=== PATIENT | female | born 1950 | race Caucasian/White ===

== ENCOUNTER 2016-09-14 14:27 | Inpatient (IN) | payer OTHER ==
[~2016-09-14] VITALS: Ht 158.8 cm; Wt 78.5 kg
[~2016-09-14 14:27] MED LIST: ADVAIR 250/501 DISK IH; ADVAIR 500/501 DISK IH; ALBUTEROL IH; ALBUTEROL2.5 MG/3 M IH; AMLODIPINE BES2.5 MG PO; ASPIR 8181 M1 PO; ASPIRIN325 MG PO; ATIVAN0.5 MG PO; AZITHROMYCIN250 MG PO; AZITHROMYCIN250 MG1 PO; Advair HFA 230/21 IH; BENEFIBER98 GM PO; CARAFATE100 MG/ML PO; COLACE100 MG PO; COUMADIN4 MG PO; COUMADIN5 MG PO; DEXILANT60 MG PO; DOMP10T PO; DOMPERIDONE PO; DUONEB 2.5-0.5 M3 ML AEROSOL; DYAZIDE, MA1 CAPSULE PO; ELIQUIS5 MG PO; Ecotrin PO; FUROSEMIDE40 MG PO; K-DUR20 MEQ PO; KLOR-CON M2020 MEQ PO; LASIX20 MG PO; LASIX40 MG PO; LEVAQUIN500 MG PO; LEVOFLOXACIN750 MG PO; LEVOTHYROXINE125 MCG PO; LEVOXYL125 MCG PO; LEXAPRO10 MG PO; LISINOPRIL10 MG PO; LORAZEPAM0.5 MG PO; LOVENOX60 MG/0.6 SC; LOVENOX80 MG/0.8 SC; Levothroid,Synthroid PO; MIRALAX17 GM PO; MIRALAX255 GM PO; MOTRIN600 MG PO; MOTRIN800 MG PO; NITROSTAT,NITR0.4 M1 SL; PANTOPRAZOLE SO40 MG PO; PRAVACHOL40 MG PO; PREDNISONE10 MG PO; PREDNISONE20 MG PO; PREDNISONE5 MG PO; PROAIR HFA8.5 GM IH; PROTONIX40 MG PO; PROVENTIL,2.5 MG/3 M IH; SIMVASTATIN10 MG PO; SPIRIVA RESPIMAT4 GM IH; SPIRIVA1 INHALATI IH; SYMBICORT60 INHALAT IH; SYNTHROID100 MCG PO; SYNTHROID125 MCG PO; TRAMADOL HCL50 MG PO; TRAZODONE HCL50 MG PO; TUDORZA PRESS400 MCG IH; TYLENOL EXTRA500 MG PO; ULTRAM50 MG PO; VENTOLIN HFA18 GM IH; WARFARIN SODIUM1 MG PO; WARFARIN SODIUM5 MG PO; ZITHROMAX250 MG PO
[2016-09-14 15:15] LABS: HEMATOCRIT 44.7 % (36.0-46.0); MCH 29.4 PG (29.0-34.0); MCHC 32.4 G/DL (30.0-36.0); MCV 90.5 FL (83-99); MEAN PLAT.VOLUME 10.2 uM^3 (9.5-12.4); PLATELET COUNT 255 K/uL (156-360); RBC DIS.WIDTH-CV 15.4 % (11.8-14.6); RBC DIS.WIDTH-SD 50.4 % (39-53); RED BLOOD COUNT 4.94 M/uL (3.80-5.20); WHITE BLOOD COUNT 16.2 K/uL (4.1-10.2)
[2016-09-14] MEDS ORDERED: WARFARIN SODIU2.5 MG PO (15:16)
[2016-09-14] MEDS ORDERED: WARFARIN SODIUM5 MG PO (15:18)
[2016-09-14] MEDS ORDERED: DUONEB 2.5-0.5 M3 ML AEROSOL (15:21)
[2016-09-14] MEDS ORDERED: TUDORZA PRESS400 MCG IH (15:22)
[2016-09-14] MEDS ORDERED: ZITHROMAX500 MG PO (15:23)
[2016-09-14] MEDS ORDERED: PREDNISONE10 MG PO (15:26)
[2016-09-14] MEDS ORDERED: DALIRESP500 MCG PO (15:29)
[2016-09-14 15:53] LABS: ANION GAP 11 MEQ/L (2-14); CHLORIDE 99 MEQ/L (99-109); POTASSIUM 3.5 MEQ/L (3.7-5.4); SAMPLE HEMOLYSIS CHECK 0; SAMPLE ICTERIC CHECK 0; SAMPLE LIPEMIA CHECK 0; SODIUM 141 MEQ/L (136-147)
[2016-09-14 15:59] LABS: GFR ESTIMATE (CALCULATED) 48 mL/min/; GLUCOSE 87 mg/dL (70-99); UREA NITROGEN (BUN) 31 mg/dL (9-23)
[2016-09-14 16:00] LABS: TROP-I INTERPRETATION NEGATIVE; TROPONIN-I < 0.01 ng/mL (0.0-0.30)
[2016-09-14 18:07] LABS: INTER. NORMALIZED RATIO 2.1; PROTHROMBIN TIME 22.2 (9.2-11.2)
[2016-09-14 18:08] VITALS: BP 140/68
[2016-09-14 19:47] VITALS: BP 177/76
[2016-09-15] VITALS (8 sets, daily range): BP systolic 120–218; BP diastolic 68–100
[2016-09-15 00:06] LABS: ADD MIUA? YES; BILIRUBIN NEGATIVE; BLOOD MODERATE; COLOR YELLOW ((YELLOW)); GLUCOSE (STRIP) NEGATIVE; KETONES NEGATIVE; LEUKOCYTES NEGATIVE; NITRITE NEGATIVE; PROTEIN (STRIP) NEGATIVE; SPECIFIC GRAVITY 1.021 (1.000-1.030); UROBILINOGEN 0.2 MG/DL (0.2-1.0)
[2016-09-15 00:37] LABS: BACTERIA NONE SEEN; CASTS NONE SEEN /LPF; CRYSTALS NONE SEEN; EPITHELIAL CELLS NONE SEEN; MUCUS NONE SEEN; RED BLOOD CELLS 0-5 /HPF (0-5); UCUL ADDED? NO; WHITE BLOOD CELLS NONE SEEN /HPF (0-5)
[2016-09-15 06:29] LABS: ANION GAP 12 MEQ/L (2-14); CHLORIDE 100 MEQ/L (99-109); GFR ESTIMATE (CALCULATED) 43 mL/min/; SAMPLE HEMOLYSIS CHECK 0; SAMPLE ICTERIC CHECK 0; SAMPLE LIPEMIA CHECK 0; SODIUM 141 MEQ/L (136-147); UREA NITROGEN (BUN) 30 mg/dL (9-23)
[2016-09-15 06:32] LABS: GLUCOSE 143 mg/dL (70-99); POTASSIUM 4.3 MEQ/L (3.7-5.4)
[2016-09-15 06:34] LABS: HEMATOCRIT 41.3 % (36.0-46.0); MCH 29.5 PG (29.0-34.0); MCHC 32.2 G/DL (30.0-36.0); MCV 91.6 FL (83-99); MEAN PLAT.VOLUME 10.6 uM^3 (9.5-12.4); PLATELET COUNT 247 K/uL (156-360); RBC DIS.WIDTH-CV 15.3 % (11.8-14.6); RBC DIS.WIDTH-SD 51.3 % (39-53); RED BLOOD COUNT 4.51 M/uL (3.80-5.20)
[2016-09-15 06:36] LABS: WHITE BLOOD COUNT 10.1 K/uL (4.1-10.2)
[2016-09-15 06:46] LABS: INTER. NORMALIZED RATIO 2.1; PROTHROMBIN TIME 21.8 (9.2-11.2)
[2016-09-16] VITALS: BP 121/63
[2016-09-16 07:28] VITALS: BP 172/77
[2016-09-16 07:32] LABS: INTER. NORMALIZED RATIO 2.7; PROTHROMBIN TIME 28.5 (9.2-11.2)
[2016-09-16 08:29] LABS: ANION GAP 10 MEQ/L (2-14); CHLORIDE 101 MEQ/L (99-109); GFR ESTIMATE (CALCULATED) 43 mL/min/; GLUCOSE 132 mg/dL (70-99); POTASSIUM 4.4 MEQ/L (3.7-5.4); SAMPLE HEMOLYSIS CHECK 0; SAMPLE ICTERIC CHECK 0; SAMPLE LIPEMIA CHECK 0; SODIUM 141 MEQ/L (136-147); UREA NITROGEN (BUN) 32 mg/dL (9-23)
[2016-09-16 15:56] VITALS: BP 119/70
[2016-09-17] VITALS: BP 133/58
[2016-09-17 06:12] LABS: INTER. NORMALIZED RATIO 3.4; PROTHROMBIN TIME 35.6 (9.2-11.2)
[2016-09-17 08:15] VITALS: BP 142/68
[2016-09-17 17:25] VITALS: BP 130/56
[2016-09-18] VITALS: BP 132/65
[2016-09-18 06:04] LABS: INTER. NORMALIZED RATIO 4.2; PROTHROMBIN TIME 44.3 (9.2-11.2)
[2016-09-18 09:06] LABS: HEMATOCRIT 42.5 % (36.0-46.0); MCHC 32.7 G/DL (30.0-36.0); MCV 91.8 FL (83-99); MEAN PLAT.VOLUME 10.3 uM^3 (9.5-12.4); PLATELET COUNT 267 K/uL (156-360); RBC DIS.WIDTH-CV 15.7 % (11.8-14.6); RBC DIS.WIDTH-SD 52.4 % (39-53); RED BLOOD COUNT 4.63 M/uL (3.80-5.20); WHITE BLOOD COUNT 11.5 K/uL (4.1-10.2)
[2016-09-18 09:41] LABS: ANION GAP 8 MEQ/L (2-14); CHLORIDE 99 MEQ/L (99-109); GFR ESTIMATE (CALCULATED) 48 mL/min/; GLUCOSE 143 mg/dL (70-99); POTASSIUM 4.2 MEQ/L (3.7-5.4); SAMPLE HEMOLYSIS CHECK 0; SAMPLE ICTERIC CHECK 0; SAMPLE LIPEMIA CHECK 0; SODIUM 139 MEQ/L (136-147); UREA NITROGEN (BUN) 35 mg/dL (9-23)
[2016-09-18 15:30] VITALS: BP 135/67
[2016-09-19] VITALS: BP 121/58
[2016-09-19 06:29] LABS: INTER. NORMALIZED RATIO 3.4; PROTHROMBIN TIME 35.6 (9.2-11.2)
[2016-09-19 06:30] LABS: HEMATOCRIT 39.9 % (36.0-46.0); MCH 28.5 PG (29.0-34.0); MCHC 31.3 G/DL (30.0-36.0); MCV 91.1 FL (83-99); MEAN PLAT.VOLUME 9.9 uM^3 (9.5-12.4); PLATELET COUNT 266 K/uL (156-360); RBC DIS.WIDTH-CV 15.5 % (11.8-14.6); RBC DIS.WIDTH-SD 51.8 % (39-53); RED BLOOD COUNT 4.38 M/uL (3.80-5.20); WHITE BLOOD COUNT 10.4 K/uL (4.1-10.2)
[2016-09-19 06:46] LABS: ANION GAP 8 MEQ/L (2-14); CHLORIDE 98 MEQ/L (99-109); GFR ESTIMATE (CALCULATED) 48 mL/min/; GLUCOSE 139 mg/dL (70-99); POTASSIUM 4.6 MEQ/L (3.7-5.4); SAMPLE HEMOLYSIS CHECK 0; SAMPLE ICTERIC CHECK 0; SAMPLE LIPEMIA CHECK 0; SODIUM 139 MEQ/L (136-147); UREA NITROGEN (BUN) 32 mg/dL (9-23)
[2016-09-19 07:48] VITALS: BP 114/67
[2016-09-19 14:56] VITALS: BP 138/67
[2016-09-20] VITALS: BP 136/71
[2016-09-20 06:39] LABS: PROTHROMBIN TIME 31.9 (9.2-11.2)
[2016-09-20 07:42] VITALS: BP 161/75
[2016-09-20 15:25] VITALS: BP 128/63
[2016-09-21] VITALS: BP 128/61
[2016-09-21 06:49] LABS: INTER. NORMALIZED RATIO 3.4; PROTHROMBIN TIME 36.2 (9.2-11.2)
[2016-09-21 08:01] VITALS: BP 151/75
[2016-09-21] MEDS ORDERED: Robitussin AC,Tussi- PO (12:27)
[2016-09-21] MEDS ORDERED: PREDNISONE10 MG PO (12:27)
[2016-09-21] MEDS ORDERED: LOSARTAN POTASS50 MG PO (12:27)
== END 2016-09-21 13:55 | disposition home or self-care (01) | DRG 190 ==
LOC: EME 14:27 → EDOF 16:25 → 5WEST 16:25 → 5SOUTH 09-15 08:20 → 5WEST 09-15 08:20 → 5SOUTH 09-15 21:02
PROVIDERS: Internal Medicine; Physician Assistant; Physician Assistant Medical; Student in an Organized Health Care Education/Training Program
DX: J44.0 Chronic obstructive pulmonary disease with (acute) lower respiratory infection (principal); J96.21 Acute and chronic respiratory failure with hypoxia; I10 Essential (primary) hypertension; F32.9 Major depressive disorder, single episode, unspecified; K21.9 Gastro-esophageal reflux disease without esophagitis; E03.9 Hypothyroidism, unspecified; E87.6 Hypokalemia; Z99.81 Dependence on supplemental oxygen; Z87.891 Personal history of nicotine dependence; J20.9 Acute bronchitis, unspecified; Z86.718 Personal history of other venous thrombosis and embolism; Z79.01 Long term (current) use of anticoagulants
CPT/HCPCS: 71020; 71100; 71275; 80048; 81003; 82785 90; 82948; 84484; 85027; 85610; 87070; 87106; 87205; 93005; 94640; 94640 76; 94799; 99202; 99281; 99284; G0378; J2920; J2930; J7030; J7512

== ENCOUNTER 2017-01-10 16:23 | Inpatient (IN) | payer OTHER ==
[~2017-01-10] VITALS: Ht 158.8 cm; Wt 80.5 kg
[~2017-01-10 16:23] MED LIST changes: +DALIRESP500 MCG PO; +LOSARTAN POTASS50 MG PO; +Robitussin AC,Tussi- PO; +WARFARIN SODIU2.5 MG PO; +ZITHROMAX500 MG PO
[2017-01-10 16:52] LABS: HEMATOCRIT 44.4 % (36.0-46.0); MCH 29.5 PG (29.0-34.0); MCV 92.1 FL (83-99); MEAN PLAT.VOLUME 9.6 uM^3 (9.5-12.4); PLATELET COUNT 310 K/uL (156-360); RBC DIS.WIDTH-CV 13.8 % (11.8-14.6); RED BLOOD COUNT 4.82 M/uL (3.80-5.20); WHITE BLOOD COUNT 12.5 K/uL (4.1-10.2)
[2017-01-10 17:02] LABS: CHLORIDE 106 mEq/L (99-109); POTASSIUM 4.1 mEq/L (3.7-5.4); SODIUM 141 mEq/L (136-147)
[2017-01-10 17:04] LABS: GLUCOSE 116 mg/dL (70-99)
[2017-01-10 17:05] LABS: ANION GAP 9 MEQ/L (2-14)
[2017-01-10 17:07] LABS: GFR ESTIMATE (CALCULATED) 43 mL/min/
[2017-01-10 17:08] LABS: UREA NITROGEN (BUN) 23 mg/dL (9-23)
[2017-01-10 17:17] LABS: TROP-I INTERPRETATION NEGATIVE; TROPONIN-I 0.01 ng/mL (0.0-0.30)
[2017-01-10] MEDS ORDERED: LASIX40 MG PO (19:53)
[2017-01-10] MEDS ORDERED: LOSARTAN POTASS25 MG PO (19:53)
[2017-01-10] MEDS ORDERED: PREDNISONE10 MG PO (19:55)
[2017-01-10] MEDS ORDERED: AZITHROMYCIN500 M1 PO (19:56)
[2017-01-10] MEDS ORDERED: KLOR-CON M2020 MEQ PO (19:56)
[2017-01-10] MEDS ORDERED: MIRALAX255 GM PO (19:57)
[2017-01-10] MEDS ORDERED: OXYCODONE HCL10 MG PO (19:57)
[2017-01-10] MEDS ORDERED: MYCOSTATIN 100,60 ML PO (19:57)
[2017-01-10] MEDS ORDERED: LEVAQUIN500 MG PO (19:57)
[2017-01-10 21:37] LABS: INTER. NORMALIZED RATIO 1.8; PROTHROMBIN TIME 18.2 (9.2-11.2); PTT 29.6 (25-32)
[2017-01-10 22:00] VITALS: BP 141/69
[2017-01-10 23:21] LABS: TROP-I INTERPRETATION NEGATIVE; TROPONIN-I < 0.01 ng/mL (0.0-0.30)
[2017-01-11] VITALS (7 sets, daily range): BP systolic 126–188; BP diastolic 63–89
[2017-01-11 07:34] LABS: HEMATOCRIT 39.7 % (36.0-46.0); MCH 29.5 PG (29.0-34.0); MCV 92.3 FL (83-99); PLATELET COUNT 283 K/uL (156-360); RBC DIS.WIDTH-CV 13.9 % (11.8-14.6); RBC DIS.WIDTH-SD 47.3 % (39-53); WHITE BLOOD COUNT 11.1 K/uL (4.1-10.2)
[2017-01-11 07:56] LABS: ALKALINE PHOSPHATASE 78 IU/L (3-129); ANION GAP 9 MEQ/L (2-14); CHLORIDE 104 MEQ/L (99-109); GFR ESTIMATE (CALCULATED) 48 mL/min/; GLUCOSE 132 mg/dL (70-99); POTASSIUM 4.2 MEQ/L (3.7-5.4); SAMPLE HEMOLYSIS CHECK 0; SAMPLE ICTERIC CHECK 0; SAMPLE LIPEMIA CHECK 0; SODIUM 141 MEQ/L (136-147); TOTAL BILIRUBIN 0.9 MG/DL (0.0-1.0); UREA NITROGEN (BUN) 25 mg/dL (9-23)
[2017-01-11 07:59] LABS: TROP-I INTERPRETATION NEGATIVE; TROPONIN-I 0.01 ng/mL (0.0-0.30)
[2017-01-12 03:08] VITALS: BP 146/66
[2017-01-12 07:16] LABS: EOSINOPHIL (%) 0 % (0-5); HEMATOCRIT 41.5 % (36.0-46.0); IMMATURE GRANULOCYTE (%) 1.3 % (0.0-0.7); IMMATURE GRANULOCYTE COUNT 0.2 K/uL; LYMPHOCYTE COUNT 0.7 K/uL (1.0-2.8); MCH 30.5 PG (29.0-34.0); MCHC 32.5 G/DL (30.0-36.0); MCV 93.9 FL (83-99); MONOCYTE (%) 5.4 % (3-12); NEUTROPHIL (%) 89.4 % (45-76); PLATELET COUNT 307 K/uL (156-360); RBC DIS.WIDTH-CV 14.1 % (11.8-14.6); RBC DIS.WIDTH-SD 49.2 % (39-53); RED BLOOD COUNT 4.42 M/uL (3.80-5.20)
[2017-01-12 07:27] LABS: INTER. NORMALIZED RATIO 1.4; PROTHROMBIN TIME 14.9 (9.2-11.2)
[2017-01-12 07:30] LABS: ALKALINE PHOSPHATASE 84 IU/L (3-129); ANION GAP 11 MEQ/L (2-14); CHLORIDE 99 MEQ/L (99-109); GFR ESTIMATE (CALCULATED) 43 mL/min/; GLUCOSE 162 mg/dL (70-99); POTASSIUM 4.5 MEQ/L (3.7-5.4); SAMPLE HEMOLYSIS CHECK 0; SAMPLE ICTERIC CHECK 0; SAMPLE LIPEMIA CHECK 0; SODIUM 139 MEQ/L (136-147); TOTAL BILIRUBIN 0.8 MG/DL (0.0-1.0); UREA NITROGEN (BUN) 33 mg/dL (9-23)
[2017-01-12 07:45] VITALS: BP 145/65
[2017-01-12 11:15] VITALS: BP 169/72
[2017-01-12 15:45] VITALS: BP 177/81
[2017-01-12 19:35] VITALS: BP 129/61
[2017-01-13 00:28] VITALS: BP 154/76
[2017-01-13 04:20] VITALS: BP 101/57
[2017-01-13 07:20] LABS: HEMATOCRIT 39.8 % (36.0-46.0); MCH 29.5 PG (29.0-34.0); MCHC 31.4 G/DL (30.0-36.0); MCV 93.9 FL (83-99); MEAN PLAT.VOLUME 9.9 uM^3 (9.5-12.4); PLATELET COUNT 289 K/uL (156-360); RBC DIS.WIDTH-CV 14.2 % (11.8-14.6); RBC DIS.WIDTH-SD 49.1 % (39-53); RED BLOOD COUNT 4.24 M/uL (3.80-5.20); WHITE BLOOD COUNT 19.8 K/uL (4.1-10.2)
[2017-01-13 07:26] LABS: INTER. NORMALIZED RATIO 1.7; PROTHROMBIN TIME 17.1 (9.2-11.2)
[2017-01-13 07:35] VITALS: BP 153/72
[2017-01-13 15:55] VITALS: BP 143/73
[2017-01-14 00:03] VITALS: BP 165/79
[2017-01-14 07:13] LABS: HEMATOCRIT 41.8 % (36.0-46.0); MCH 29.4 PG (29.0-34.0); MCHC 31.3 G/DL (30.0-36.0); MCV 93.9 FL (83-99); MEAN PLAT.VOLUME 9.8 uM^3 (9.5-12.4); PLATELET COUNT 288 K/uL (156-360); RBC DIS.WIDTH-CV 14.1 % (11.8-14.6); RED BLOOD COUNT 4.45 M/uL (3.80-5.20); WHITE BLOOD COUNT 16.2 K/uL (4.1-10.2)
[2017-01-14 07:52] LABS: INTER. NORMALIZED RATIO 1.9; PROTHROMBIN TIME 19.9 (9.2-11.2)
[2017-01-14 08:00] VITALS: BP 165/80
[2017-01-14] MEDS ORDERED: PREDNISONE20 MG PO (10:24)
[2017-01-14] MEDS ORDERED: SPIRIVA RESPIMAT4 GM IH (10:24)
[2017-01-14] MEDS ORDERED: ALPRAZOLAM0.25 M2 PO (10:24)
[2017-01-14] MEDS ORDERED: FLUCONAZOLE200 MG PO (10:24)
== END 2017-01-14 11:17 | disposition home or self-care (01) | DRG 190 ==
LOC: EME → EDBD 16:23 → EME 17:23 → 2EAST 20:55 → EDOF 20:55 → 2EAST 21:43
PROVIDERS: Emergency Medicine; Hospitalist; Internal Medicine
DX: J44.1 Chronic obstructive pulmonary disease with (acute) exacerbation (principal); J96.21 Acute and chronic respiratory failure with hypoxia; J45.909 Unspecified asthma, uncomplicated; I10 Essential (primary) hypertension; E03.9 Hypothyroidism, unspecified; B37.0 Candidal stomatitis; K21.9 Gastro-esophageal reflux disease without esophagitis; K22.70 Barrett's esophagus without dysplasia; E78.5 Hyperlipidemia, unspecified; F32.9 Major depressive disorder, single episode, unspecified; E66.9 Obesity, unspecified; Z68.31 Body mass index [BMI] 31.0-31.9, adult; Z99.81 Dependence on supplemental oxygen; Z86.718 Personal history of other venous thrombosis and embolism; Z79.01 Long term (current) use of anticoagulants; Z79.52 Long term (current) use of systemic steroids; Z79.2 Long term (current) use of antibiotics; Z87.891 Personal history of nicotine dependence
CPT/HCPCS: 71010; 71020; 73130; 80048; 80053; 84484; 85025; 85025 91; 85027; 85610; 85730; 87070; 87205; 93005; 94010; 94640; 94640 76; 94799; 99202; 99281; 99285; J1100; J2930; J7512

== ENCOUNTER 2017-01-24 14:46 | Emergency (ER) | payer OTHER ==
[~2017-01-24] VITALS: Ht 157.5 cm; Wt 83.6 kg
[~2017-01-24 14:46] MED LIST changes: +ALPRAZOLAM0.25 M2 PO; +AZITHROMYCIN500 M1 PO; +FLUCONAZOLE200 MG PO; +LOSARTAN POTASS25 MG PO; +MYCOSTATIN 100,60 ML PO; +OXYCODONE HCL10 MG PO
[2017-01-24 15:54] LABS: ADD MIUA? YES; BILIRUBIN NEGATIVE; BLOOD MODERATE; COLOR STRAW ((YELLOW)); GLUCOSE (STRIP) NEGATIVE; KETONES NEGATIVE; LEUKOCYTES NEGATIVE; NITRITE NEGATIVE; PROTEIN (STRIP) NEGATIVE; SPECIFIC GRAVITY 1.009 (1.000-1.030); UROBILINOGEN 0.2 MG/DL (0.2-1.0)
[2017-01-24 15:59] LABS: BACTERIA NONE SEEN /HPF; EPITHELIAL CELLS RARE /HPF; HYALINE CASTS 0-5 /LPF; MUCUS TRACE /LPF; WHITE BLOOD CELLS 0-5 /HPF (0-5)
[2017-01-24 16:00] LABS: EOSINOPHIL (%) 0.2 % (0-5); IMMATURE GRANULOCYTE (%) 1.6 % (0.0-0.7); IMMATURE GRANULOCYTE COUNT 0.3 K/uL; INSTRUMENT ABS NEUTROPHIL CT 15.1 K/uL; LYMPHOCYTE COUNT 1.6 K/uL (1.0-2.8); MCH 29.5 PG (29.0-34.0); MCHC 31.5 G/DL (30.0-36.0); MCV 93.5 FL (83-99); MEAN PLAT.VOLUME 9.6 uM^3 (9.5-12.4); MONOCYTE COUNT 0.9 K/uL (0-0.8); NEUTROPHIL (%) 84.1 % (45-76); NEUTROPHIL COUNT 15.1 K/uL (1.8-6.4); PLATELET COUNT 224 K/uL (156-360); RBC DIS.WIDTH-CV 14.3 % (11.8-14.6); RBC DIS.WIDTH-SD 49.5 % (39-53); RED BLOOD COUNT 4.92 M/uL (3.80-5.20); WHITE BLOOD COUNT 17.9 K/uL (4.1-10.2)
[2017-01-24 16:08] LABS: CHLORIDE 101 mEq/L (99-109); POTASSIUM 4.5 mEq/L (3.7-5.4); SODIUM 143 mEq/L (136-147)
[2017-01-24 16:10] LABS: GLUCOSE 100 mg/dL (70-99)
[2017-01-24 16:12] LABS: ANION GAP 12 MEQ/L (2-14); TOTAL BILIRUBIN 1.1 mg/dL (0.0-1.0)
[2017-01-24 16:14] LABS: ALKALINE PHOSPHATASE 75 IU/L (3-129); GFR ESTIMATE (CALCULATED) 43 mL/min/
[2017-01-24 16:15] LABS: UREA NITROGEN (BUN) 32 mg/dL (9-23)
[2017-01-24 16:17] LABS: LIPASE 23 U/L (1.0-51.0)
[2017-01-24 18:20] LABS: INTER. NORMALIZED RATIO 2.4; PROTHROMBIN TIME 24.9 (9.2-11.2)
[2017-01-24 19:00] VITALS: BP 148/81
== END 2017-01-24 19:10 | disposition home or self-care (01) ==
LOC: EME 14:46
PROVIDERS: Emergency Medicine
DX: K59.00 Constipation, unspecified (principal); J44.9 Chronic obstructive pulmonary disease, unspecified; J45.909 Unspecified asthma, uncomplicated; K21.9 Gastro-esophageal reflux disease without esophagitis; Z99.81 Dependence on supplemental oxygen; Z86.718 Personal history of other venous thrombosis and embolism; Z79.01 Long term (current) use of anticoagulants; Z87.891 Personal history of nicotine dependence; Z88.6 Allergy status to analgesic agent; Z88.1 Allergy status to other antibiotic agents
CPT/HCPCS: 71010; 74177; 80053; 81003; 83690; 85025; 85610; 93005; 94640; 99281; 99285; J2270; J7030

== ENCOUNTER 2017-02-06 10:36 | Inpatient (IN) | payer OTHER ==
[~2017-02-06] VITALS: Ht 157.5 cm; Wt 84.1 kg
[2017-02-06 12:00] LABS: HEMATOCRIT 40.7 % (36.0-46.0); MCH 29.5 PG (29.0-34.0); MCHC 31.4 G/DL (30.0-36.0); MCV 93.8 FL (83-99); MEAN PLAT.VOLUME 9.7 uM^3 (9.5-12.4); PLATELET COUNT 183 K/uL (156-360); RBC DIS.WIDTH-CV 14.4 % (11.8-14.6); RBC DIS.WIDTH-SD 49.6 % (39-53); RED BLOOD COUNT 4.34 M/uL (3.80-5.20); WHITE BLOOD COUNT 10.3 K/uL (4.1-10.2)
[2017-02-06 12:04] LABS: INTER. NORMALIZED RATIO 1.8; PROTHROMBIN TIME 19.1 (9.2-11.2)
[2017-02-06 12:05] LABS: CHLORIDE 102 mEq/L (99-109); SODIUM 143 mEq/L (136-147)
[2017-02-06 12:07] LABS: GLUCOSE 75 mg/dL (70-99)
[2017-02-06 12:08] LABS: ANION GAP 8 MEQ/L (2-14)
[2017-02-06 12:09] LABS: TOTAL BILIRUBIN 0.9 mg/dL (0.0-1.0)
[2017-02-06 12:10] LABS: ALKALINE PHOSPHATASE 108 IU/L (3-129)
[2017-02-06 12:11] LABS: GFR ESTIMATE (CALCULATED) 53 mL/min/
[2017-02-06 12:12] LABS: UREA NITROGEN (BUN) 24 mg/dL (9-23)
[2017-02-06 12:14] LABS: TROP-I INTERPRETATION NEGATIVE; TROPONIN-I 0.03 ng/mL (0.0-0.30)
[2017-02-06 12:14] LABS: LIPASE 15 U/L (1.0-51.0)
[2017-02-06 13:10] LABS: ADD MIUA? YES; BILIRUBIN NEGATIVE; BLOOD MODERATE; COLOR YELLOW ((YELLOW)); GLUCOSE (STRIP) NEGATIVE; KETONES 5; LEUKOCYTES SMALL; NITRITE NEGATIVE; PROTEIN (STRIP) 100; SPECIFIC GRAVITY 1.027 (1.000-1.030)
[2017-02-06 13:45] LABS: BACTERIA RARE /HPF; EPITHELIAL CELLS RARE /HPF; HYALINE CASTS 0-5 /LPF; MUCUS TRACE /LPF; RED BLOOD CELLS 20-30 /HPF (0-5); UCUL ADDED? NO; WHITE BLOOD CELLS 15-20 /HPF (0-5)
[2017-02-06] MEDS ORDERED: PREDNISONE10 MG PO (14:40)
[2017-02-06] MEDS ORDERED: FLONASE16 G1 BOTH NARES (14:42)
[2017-02-06] MEDS ORDERED: LORAZEPAM0.5 MG PO (14:42)
[2017-02-06] MEDS ORDERED: TIZANIDINE HCL2 MG PO (14:42)
[2017-02-06] MEDS ORDERED: WARFARIN SODIUM5 MG PO (15:56)
[2017-02-06 17:57] VITALS: BP 178/81
[2017-02-06 20:53] LABS: TROP-I INTERPRETATION NEGATIVE; TROPONIN-I 0.03 ng/mL (0.0-0.30)
[2017-02-06 22:08] VITALS: BP 118/63
[2017-02-07 00:58] VITALS: BP 134/57
[2017-02-07 03:47] VITALS: BP 132/58
[2017-02-07 07:53] VITALS: BP 143/75
[2017-02-07 07:58] LABS: TROP-I INTERPRETATION NEGATIVE; TROPONIN-I 0.02 ng/mL (0.0-0.30)
[2017-02-07 08:00] LABS: INTER. NORMALIZED RATIO 2.1; PROTHROMBIN TIME 21.6 (9.2-11.2)
[2017-02-07 11:17] VITALS: BP 133/60
[2017-02-07 16:35] VITALS: BP 137/66
[2017-02-07 21:46] VITALS: BP 146/66
[2017-02-08] VITALS (7 sets, daily range): BP systolic 107–143; BP diastolic 57–72
[2017-02-08 05:55] LABS: EOSINOPHIL (%) 0 % (0-5); HEMATOCRIT 36.9 % (36.0-46.0); IMMATURE GRANULOCYTE (%) 1.1 % (0.0-0.7); IMMATURE GRANULOCYTE COUNT 0.1 K/uL; INSTRUMENT ABS NEUTROPHIL CT 10.4 K/uL; LYMPHOCYTE COUNT 0.4 K/uL (1.0-2.8); MCH 30.8 PG (29.0-34.0); MCHC 33.3 G/DL (30.0-36.0); MCV 92.3 FL (83-99); MEAN PLAT.VOLUME 9.9 uM^3 (9.5-12.4); MONOCYTE (%) 8.5 % (3-12); NEUTROPHIL (%) 86.6 % (45-76); NEUTROPHIL COUNT 10.4 K/uL (1.8-6.4); PLATELET COUNT 218 K/uL (156-360); RBC DIS.WIDTH-CV 14.9 % (11.8-14.6); RBC DIS.WIDTH-SD 50.3 % (39-53)
[2017-02-08 06:15] LABS: INTER. NORMALIZED RATIO 2.4; PROTHROMBIN TIME 25.4 (9.2-11.2)
[2017-02-08 06:20] LABS: ALKALINE PHOSPHATASE 103 IU/L (3-129); ANION GAP 14 MEQ/L (2-14); CHLORIDE 95 MEQ/L (99-109); GFR ESTIMATE (CALCULATED) 37 mL/min/; SAMPLE HEMOLYSIS CHECK 0; SAMPLE ICTERIC CHECK 0; SAMPLE LIPEMIA CHECK 0; SODIUM 138 MEQ/L (136-147); TOTAL BILIRUBIN 0.7 MG/DL (0.0-1.0); UREA NITROGEN (BUN) 35 mg/dL (9-23)
[2017-02-08 06:25] LABS: GLUCOSE 173 mg/dL (70-99)
[2017-02-08 08:31] LABS: HDL CHOLESTEROL 80 MG/DL (Desirable>=50); LDL CHOLESTEROL 194 mg/dL (Desirable<100); NON-HDL CHOLESTEROL 211 mg/dL (Desirable<160); TOTAL CHOLESTEROL 291 mg/dL (Desirable<200); TRIGLYCERIDES 86 MG/DL (Normal: <150)
[2017-02-08 10:16] LABS: BASE EXCESS 6.4 mEq/L (-3 to +3); BICARBONATE 31.3 mEq/L (22-26); CARBOXY HGB 1.9 % (0-5); COMMENTS - BLOOD GASES A+C+; DEVICE NC; METHEMOGLOBIN 1.8 % (0-1.5); O2 FLOW 3 L/MIN; PCO2 45 mm Hg (35-45); PO2 65 mm Hg (80-100); SITE RR; pH 7.45 (7.35-7.45)
[2017-02-08 10:17] LABS: TOTAL RESP RATE 20 resp/min
[2017-02-09] VITALS (7 sets, daily range): BP systolic 105–150; BP diastolic 57–78
[2017-02-09 06:59] LABS: EOSINOPHIL (%) 0 % (0-5); HEMATOCRIT 37.8 % (36.0-46.0); IMMATURE GRANULOCYTE (%) 1.2 % (0.0-0.7); IMMATURE GRANULOCYTE COUNT 0.2 K/uL; INSTRUMENT ABS NEUTROPHIL CT 10.3 K/uL; LYMPHOCYTE COUNT 0.8 K/uL (1.0-2.8); MCH 29.6 PG (29.0-34.0); MCHC 31.7 G/DL (30.0-36.0); MCV 93.1 FL (83-99); MEAN PLAT.VOLUME 9.7 uM^3 (9.5-12.4); MONOCYTE (%) 9.8 % (3-12); MONOCYTE COUNT 1.2 K/uL (0-0.8); NEUTROPHIL (%) 82.7 % (45-76); NEUTROPHIL COUNT 10.3 K/uL (1.8-6.4); PLATELET COUNT 226 K/uL (156-360); RBC DIS.WIDTH-CV 15.1 % (11.8-14.6); RBC DIS.WIDTH-SD 51.7 % (39-53); RED BLOOD COUNT 4.06 M/uL (3.80-5.20); WHITE BLOOD COUNT 12.5 K/uL (4.1-10.2)
[2017-02-09 07:23] LABS: INTER. NORMALIZED RATIO 2.6
[2017-02-09 07:39] LABS: ALKALINE PHOSPHATASE 96 IU/L (3-129); ANION GAP 8 MEQ/L (2-14); CHLORIDE 97 MEQ/L (99-109); GFR ESTIMATE (CALCULATED) 43 mL/min/; GLUCOSE 147 mg/dL (70-99); POTASSIUM 4.7 MEQ/L (3.7-5.4); SAMPLE HEMOLYSIS CHECK 0; SAMPLE ICTERIC CHECK 0; SAMPLE LIPEMIA CHECK 0; SODIUM 140 MEQ/L (136-147); TOTAL BILIRUBIN 0.7 MG/DL (0.0-1.0); UREA NITROGEN (BUN) 30 mg/dL (9-23)
[2017-02-10 03:18] VITALS: BP 133/60
[2017-02-10 07:30] LABS: HEMATOCRIT 39.1 % (36.0-46.0); MCH 30.8 PG (29.0-34.0); MCHC 32.7 G/DL (30.0-36.0); MCV 94.2 FL (83-99); MEAN PLAT.VOLUME 9.6 uM^3 (9.5-12.4); PLATELET COUNT 244 K/uL (156-360); RBC DIS.WIDTH-CV 15.1 % (11.8-14.6); RBC DIS.WIDTH-SD 51.8 % (39-53); RED BLOOD COUNT 4.15 M/uL (3.80-5.20); WHITE BLOOD COUNT 9.6 K/uL (4.1-10.2)
[2017-02-10 07:31] VITALS: BP 146/73
[2017-02-10 07:40] LABS: INTER. NORMALIZED RATIO 2.5; PROTHROMBIN TIME 26.7 (9.2-11.2)
[2017-02-10 08:02] LABS: ANION GAP 8 MEQ/L (2-14); CHLORIDE 97 MEQ/L (99-109); GFR ESTIMATE (CALCULATED) 48 mL/min/; GLUCOSE 139 mg/dL (70-99); POTASSIUM 5.3 MEQ/L (3.7-5.4); SAMPLE HEMOLYSIS CHECK 0; SAMPLE ICTERIC CHECK 0; SAMPLE LIPEMIA CHECK 0; SODIUM 139 MEQ/L (136-147); UREA NITROGEN (BUN) 28 mg/dL (9-23)
[2017-02-10 11:23] VITALS: BP 138/69
[2017-02-10 16:11] VITALS: BP 171/78
[2017-02-10 23:10] VITALS: BP 143/65
[2017-02-11 04:08] LABS: TROP-I INTERPRETATION NEGATIVE; TROPONIN-I 0.04 ng/mL (0.0-0.30)
[2017-02-11 07:20] VITALS: BP 143/72
[2017-02-11 07:45] LABS: EOSINOPHIL (%) 0 % (0-5); HEMATOCRIT 40.3 % (36.0-46.0); IMMATURE GRANULOCYTE (%) 2.2 % (0.0-0.7); IMMATURE GRANULOCYTE COUNT 0.3 K/uL; INSTRUMENT ABS NEUTROPHIL CT 9.8 K/uL; LYMPHOCYTE COUNT 0.8 K/uL (1.0-2.8); MCH 30.4 PG (29.0-34.0); MCHC 32.5 G/DL (30.0-36.0); MCV 93.5 FL (83-99); MEAN PLAT.VOLUME 9.9 uM^3 (9.5-12.4); MONOCYTE (%) 8.9 % (3-12); MONOCYTE COUNT 1.1 K/uL (0-0.8); NEUTROPHIL (%) 81.9 % (45-76); NEUTROPHIL COUNT 9.8 K/uL (1.8-6.4); PLATELET COUNT 236 K/uL (156-360); RBC DIS.WIDTH-SD 51.8 % (39-53); RED BLOOD COUNT 4.31 M/uL (3.80-5.20)
[2017-02-11 07:48] LABS: INTER. NORMALIZED RATIO 2.4; PROTHROMBIN TIME 24.8 (9.2-11.2)
[2017-02-11 09:43] LABS: ANION GAP 11 MEQ/L (2-14); CHLORIDE 93 MEQ/L (99-109); GFR ESTIMATE (CALCULATED) 48 mL/min/; GLUCOSE 144 mg/dL (70-99); SAMPLE HEMOLYSIS CHECK 2; SAMPLE ICTERIC CHECK 0; SAMPLE LIPEMIA CHECK 0; SODIUM 140 MEQ/L (136-147); UREA NITROGEN (BUN) 32 mg/dL (9-23)
[2017-02-11 11:55] VITALS: BP 127/66
[2017-02-11 16:30] VITALS: BP 144/81
[2017-02-11 23:01] VITALS: BP 130/71
[2017-02-12 07:21] LABS: EOSINOPHIL (%) 0 % (0-5); HEMATOCRIT 39.5 % (36.0-46.0); IMMATURE GRANULOCYTE (%) 2.3 % (0.0-0.7); IMMATURE GRANULOCYTE COUNT 0.3 K/uL; INSTRUMENT ABS NEUTROPHIL CT 10.5 K/uL; LYMPHOCYTE COUNT 0.9 K/uL (1.0-2.8); MCH 30.3 PG (29.0-34.0); MCHC 32.4 G/DL (30.0-36.0); MCV 93.6 FL (83-99); MEAN PLAT.VOLUME 9.9 uM^3 (9.5-12.4); MONOCYTE (%) 11.1 % (3-12); MONOCYTE COUNT 1.5 K/uL (0-0.8); NEUTROPHIL (%) 79.4 % (45-76); NEUTROPHIL COUNT 10.5 K/uL (1.8-6.4); NRBC (%) 0.2 /100 WBC (0-0); PLATELET COUNT 264 K/uL (156-360); RBC DIS.WIDTH-CV 15.1 % (11.8-14.6); RED BLOOD COUNT 4.22 M/uL (3.80-5.20); WHITE BLOOD COUNT 13.3 K/uL (4.1-10.2)
[2017-02-12 07:31] LABS: INTER. NORMALIZED RATIO 2.4; PROTHROMBIN TIME 25.2 (9.2-11.2)
[2017-02-12 07:53] LABS: ANION GAP 7 MEQ/L (2-14); CHLORIDE 95 MEQ/L (99-109); GFR ESTIMATE (CALCULATED) 43 mL/min/; GLUCOSE 133 mg/dL (70-99); POTASSIUM 4.2 MEQ/L (3.7-5.4); SAMPLE HEMOLYSIS CHECK 0; SAMPLE ICTERIC CHECK 0; SAMPLE LIPEMIA CHECK 0; SODIUM 139 MEQ/L (136-147); UREA NITROGEN (BUN) 39 mg/dL (9-23)
[2017-02-12 08:05] VITALS: BP 171/88
[2017-02-12 11:55] VITALS: BP 126/75
[2017-02-12 16:50] VITALS: BP 146/70
[2017-02-12 23:46] VITALS: BP 159/78
[2017-02-13 06:49] LABS: EOSINOPHIL (%) 0 % (0-5); HEMATOCRIT 41.4 % (36.0-46.0); IMMATURE GRANULOCYTE (%) 2.8 % (0.0-0.7); IMMATURE GRANULOCYTE COUNT 0.4 K/uL; INSTRUMENT ABS NEUTROPHIL CT 8.6 K/uL; LYMPHOCYTE COUNT 2.2 K/uL (1.0-2.8); MCH 29.5 PG (29.0-34.0); MCHC 31.4 G/DL (30.0-36.0); MCV 93.9 FL (83-99); MEAN PLAT.VOLUME 9.6 uM^3 (9.5-12.4); MONOCYTE (%) 11.8 % (3-12); MONOCYTE COUNT 1.5 K/uL (0-0.8); NEUTROPHIL COUNT 8.6 K/uL (1.8-6.4); PLATELET COUNT 249 K/uL (156-360); RBC DIS.WIDTH-SD 52.5 % (39-53); RED BLOOD COUNT 4.41 M/uL (3.80-5.20); WHITE BLOOD COUNT 12.7 K/uL (4.1-10.2)
[2017-02-13 06:56] LABS: INTER. NORMALIZED RATIO 2.6; PROTHROMBIN TIME 27.1 (9.2-11.2)
[2017-02-13 07:20] VITALS: BP 180/90
[2017-02-13 07:53] LABS: ALKALINE PHOSPHATASE 88 IU/L (3-129); ANION GAP 9 MEQ/L (2-14); CHLORIDE 97 MEQ/L (99-109); DIRECT BILIRUBIN 0.1 mg/dL (0.0-0.3); GFR ESTIMATE (CALCULATED) 48 mL/min/; LIPASE 23 U/L (1.0-51.0); POTASSIUM 4.6 MEQ/L (3.7-5.4); SAMPLE HEMOLYSIS CHECK 0; SAMPLE ICTERIC CHECK 0; SAMPLE LIPEMIA CHECK 0; SODIUM 144 MEQ/L (136-147); TOTAL BILIRUBIN 0.7 MG/DL (0.0-1.0); UREA NITROGEN (BUN) 39 mg/dL (9-23)
[2017-02-13 07:55] LABS: GLUCOSE 82 mg/dL (70-99)
[2017-02-13 12:30] VITALS: BP 170/72
[2017-02-13 16:26] VITALS: BP 164/72
[2017-02-13 20:22] VITALS: BP 166/87
[2017-02-14 00:35] VITALS: BP 128/63
[2017-02-14 04:05] VITALS: BP 194/83
[2017-02-14 07:07] VITALS: BP 195/81
[2017-02-14 07:13] LABS: EOSINOPHIL (%) 0 % (0-5); HEMATOCRIT 43.4 % (36.0-46.0); IMMATURE GRANULOCYTE (%) 4.2 % (0.0-0.7); IMMATURE GRANULOCYTE COUNT 0.6 K/uL; LYMPHOCYTE COUNT 0.7 K/uL (1.0-2.8); MCH 29.4 PG (29.0-34.0); MCHC 31.6 G/DL (30.0-36.0); MCV 93.1 FL (83-99); MEAN PLAT.VOLUME 9.6 uM^3 (9.5-12.4); MONOCYTE (%) 7.1 % (3-12); MONOCYTE COUNT 0.9 K/uL (0-0.8); PLATELET COUNT 243 K/uL (156-360); RBC DIS.WIDTH-SD 52.1 % (39-53); RED BLOOD COUNT 4.66 M/uL (3.80-5.20); WHITE BLOOD COUNT 13.3 K/uL (4.1-10.2)
[2017-02-14 07:27] LABS: INTER. NORMALIZED RATIO 2.3; PROTHROMBIN TIME 23.7 (9.2-11.2)
[2017-02-14 08:16] LABS: ANION GAP 5 MEQ/L (2-14); CHLORIDE 94 MEQ/L (99-109); GFR ESTIMATE (CALCULATED) 43 mL/min/; SAMPLE HEMOLYSIS CHECK 3; SAMPLE ICTERIC CHECK 0; SAMPLE LIPEMIA CHECK 0; SODIUM 137 MEQ/L (136-147); UREA NITROGEN (BUN) 38 mg/dL (9-23)
[2017-02-14 08:17] LABS: GLUCOSE 120 mg/dL (70-99)
[2017-02-14 09:43] LABS: MAGNESIUM 2.4 mg/dl (1.3-2.7); POTASSIUM 4.5 MEQ/L (3.7-5.4)
[2017-02-14 12:09] VITALS: BP 129/61
[2017-02-14 16:13] VITALS: BP 168/74
[2017-02-14 20:52] VITALS: BP 137/74
[2017-02-15 00:52] VITALS: BP 137/95
[2017-02-15 04:41] VITALS: BP 119/62
[2017-02-15 07:01] LABS: HEMATOCRIT 39.4 % (36.0-46.0); MCH 30.1 PG (29.0-34.0); MCHC 32.7 G/DL (30.0-36.0); MCV 91.8 FL (83-99); MEAN PLAT.VOLUME 9.9 uM^3 (9.5-12.4); PLATELET COUNT 242 K/uL (156-360); RBC DIS.WIDTH-CV 15.3 % (11.8-14.6); RBC DIS.WIDTH-SD 51.3 % (39-53); RED BLOOD COUNT 4.29 M/uL (3.80-5.20)
[2017-02-15 07:06] VITALS: BP 158/78
[2017-02-15 07:24] LABS: INTER. NORMALIZED RATIO 2.3; PROTHROMBIN TIME 23.6 (9.2-11.2)
[2017-02-15 07:33] LABS: ANION GAP 9 MEQ/L (2-14); CHLORIDE 98 MEQ/L (99-109); GFR ESTIMATE (CALCULATED) 53 mL/min/; GLUCOSE 112 mg/dL (70-99); MAGNESIUM 2.3 mg/dl (1.3-2.7); POTASSIUM 3.7 MEQ/L (3.7-5.4); SAMPLE HEMOLYSIS CHECK 0; SAMPLE ICTERIC CHECK 0; SAMPLE LIPEMIA CHECK 0; SODIUM 140 MEQ/L (136-147); UREA NITROGEN (BUN) 35 mg/dL (9-23)
[2017-02-15 15:44] VITALS: BP 127/78
[2017-02-16] VITALS: BP 123/70
[2017-02-16 05:52] LABS: INTER. NORMALIZED RATIO 2.1; PROTHROMBIN TIME 22.3 (9.2-11.2)
[2017-02-16 05:56] LABS: ANION GAP 9 MEQ/L (2-14); CHLORIDE 95 MEQ/L (99-109); GFR ESTIMATE (CALCULATED) 48 mL/min/; GLUCOSE 131 mg/dL (70-99); POTASSIUM 4.3 MEQ/L (3.7-5.4); SAMPLE HEMOLYSIS CHECK 0; SAMPLE ICTERIC CHECK 0; SAMPLE LIPEMIA CHECK 0; SODIUM 139 MEQ/L (136-147); UREA NITROGEN (BUN) 40 mg/dL (9-23)
[2017-02-16 08:28] VITALS: BP 107/63
[2017-02-16 11:03] VITALS: BP 123/78
[2017-02-16 16:19] VITALS: BP 138/77
[2017-02-16 23:10] VITALS: BP 172/68
[2017-02-17 05:09] VITALS: BP 135/66
[2017-02-17 07:09] LABS: ANION GAP 9 MEQ/L (2-14); CHLORIDE 95 MEQ/L (99-109); GFR ESTIMATE (CALCULATED) 43 mL/min/; GLUCOSE 104 mg/dL (70-99); POTASSIUM 4.6 MEQ/L (3.7-5.4); SAMPLE HEMOLYSIS CHECK 0; SAMPLE ICTERIC CHECK 0; SAMPLE LIPEMIA CHECK 0; SODIUM 140 MEQ/L (136-147); UREA NITROGEN (BUN) 35 mg/dL (9-23)
[2017-02-17 07:10] VITALS: BP 157/66
[2017-02-17 07:17] LABS: INTER. NORMALIZED RATIO 2.4; PROTHROMBIN TIME 24.6 (9.2-11.2)
[2017-02-17 11:57] VITALS: BP 126/63
[2017-02-17 16:26] VITALS: BP 141/79
[2017-02-17 19:19] VITALS: BP 155/71
[2017-02-17 23:23] VITALS: BP 154/70
[2017-02-18 03:49] VITALS: BP 148/76
[2017-02-18 05:44] VITALS: BP 151/69
[2017-02-18 07:25] VITALS: BP 134/63
[2017-02-18 07:29] LABS: INTER. NORMALIZED RATIO 2.4; PROTHROMBIN TIME 25.4 (9.2-11.2)
[2017-02-18 15:25] VITALS: BP 113/65
[2017-02-18 19:15] VITALS: BP 130/65
[2017-02-19 00:07] VITALS: BP 132/61
[2017-02-19 03:53] VITALS: BP 122/67
[2017-02-19 07:05] VITALS: BP 173/78
[2017-02-19 07:12] LABS: INTER. NORMALIZED RATIO 2.3; PROTHROMBIN TIME 24.4 (9.2-11.2)
[2017-02-19 07:35] LABS: ANION GAP 11 MEQ/L (2-14); CHLORIDE 96 MEQ/L (99-109); GFR ESTIMATE (CALCULATED) 34 mL/min/; GLUCOSE 116 mg/dL (70-99); POTASSIUM 4.4 MEQ/L (3.7-5.4); SAMPLE HEMOLYSIS CHECK 0; SAMPLE ICTERIC CHECK 0; SAMPLE LIPEMIA CHECK 0; SODIUM 140 MEQ/L (136-147); UREA NITROGEN (BUN) 38 mg/dL (9-23)
[2017-02-19] MEDS ORDERED: PERCOCET 5/31 TABLET PO (10:32)
[2017-02-19 11:18] VITALS: BP 145/63
[2017-02-19] MEDS ORDERED: LIDOCAINE700 MG TD (12:08)
== END 2017-02-19 17:06 | disposition home health service (06) | DRG 191 ==
LOC: EME 10:36 → EDOF 15:24 → 2EASTP 15:24 → EDOF 15:35 → 2EASTP 17:33
PROVIDERS: Emergency Medicine; Hospitalist; Internal Medicine
DX: J44.1 Chronic obstructive pulmonary disease with (acute) exacerbation (principal); J96.11 Chronic respiratory failure with hypoxia; M48.54XA Collapsed vertebra, not elsewhere classified, thoracic region, initial encounter for fracture; I27.2 Other secondary pulmonary hypertension; J45.901 Unspecified asthma with (acute) exacerbation; I12.9 Hypertensive chronic kidney disease with stage 1 through stage 4 chronic kidney disease, or unspecified chronic kidney disease; N18.3 Chronic kidney disease, stage 3 (moderate); G89.29 Other chronic pain; E03.9 Hypothyroidism, unspecified; E78.5 Hyperlipidemia, unspecified; R60.0 Localized edema; F32.9 Major depressive disorder, single episode, unspecified; F41.9 Anxiety disorder, unspecified; K21.9 Gastro-esophageal reflux disease without esophagitis; K22.70 Barrett's esophagus without dysplasia; M47.24 Other spondylosis with radiculopathy, thoracic region; M81.0 Age-related osteoporosis without current pathological fracture; E66.9 Obesity, unspecified; Z68.33 Body mass index [BMI] 33.0-33.9, adult; Z99.81 Dependence on supplemental oxygen; Z79.01 Long term (current) use of anticoagulants; Z79.52 Long term (current) use of systemic steroids; Z86.718 Personal history of other venous thrombosis and embolism; Z87.891 Personal history of nicotine dependence
CPT/HCPCS: 36600; 71010; 72146; 80048; 80053; 80061; 80076; 81003; 82803; 83690; 83735; 83880; 84484; 84999; 85025; 85027; 85610; 87086; 93005; 93306; 94010; 94640; 94640 76; 94668; 94760; 94799; 99202; 99281; 99284; J0360; J1170; J1940; J2060; J2270; J2920; J2930; J3475; J7512; J7644; S0028

== ENCOUNTER 2017-03-17 09:43 | Inpatient (IN) | payer OTHER ==
[~2017-03-17] VITALS: Ht 157.5 cm; Wt 88.4 kg
[~2017-03-17 09:43] MED LIST changes: +FLONASE16 G1 BOTH NARES; +LIDOCAINE700 MG TD; +PERCOCET 5/31 TABLET PO; +TIZANIDINE HCL2 MG PO
[2017-03-17 10:23] LABS: EOSINOPHIL (%) 0.3 % (0-5); HEMATOCRIT 40.6 % (36.0-46.0); IMMATURE GRANULOCYTE (%) 0.9 % (0.0-0.7); IMMATURE GRANULOCYTE COUNT 0.1 K/uL; INSTRUMENT ABS NEUTROPHIL CT 6.3 K/uL; LYMPHOCYTE COUNT 3.8 K/uL (1.0-2.8); MCH 30.1 PG (29.0-34.0); MCHC 32.5 G/DL (30.0-36.0); MCV 92.7 FL (83-99); MEAN PLAT.VOLUME 9.2 uM^3 (9.5-12.4); MONOCYTE (%) 12.6 % (3-12); MONOCYTE COUNT 1.5 K/uL (0-0.8); NEUTROPHIL (%) 53.7 % (45-76); NEUTROPHIL COUNT 6.3 K/uL (1.8-6.4); NRBC (%) 0.3 /100 WBC (0-0); PLATELET COUNT 301 K/uL (156-360); RBC DIS.WIDTH-CV 15.9 % (11.8-14.6); RBC DIS.WIDTH-SD 54.4 % (39-53); RED BLOOD COUNT 4.38 M/uL (3.80-5.20); WHITE BLOOD COUNT 11.7 K/uL (4.1-10.2)
[2017-03-17 10:33] LABS: CHLORIDE 96 mEq/L (99-109); POTASSIUM 3.9 mEq/L (3.7-5.4); SODIUM 143 mEq/L (136-147)
[2017-03-17 10:35] LABS: GLUCOSE 86 mg/dL (70-99)
[2017-03-17 10:36] LABS: ANION GAP 12 MEQ/L (2-14)
[2017-03-17 10:39] LABS: GFR ESTIMATE (CALCULATED) 59 mL/min/; UREA NITROGEN (BUN) 21 mg/dL (9-23)
[2017-03-17 10:47] LABS: TROP-I INTERPRETATION NEGATIVE; TROPONIN-I 0.03 ng/mL (0.0-0.30)
[2017-03-17] MEDS ORDERED: KEFLEX500 MG PO (12:48)
[2017-03-17] MEDS ORDERED: PERCOCET 10/1 TABLET PO (12:49)
[2017-03-17 15:25] LABS: INTER. NORMALIZED RATIO 1.5; PROTHROMBIN TIME 15.4 (9.2-11.2)
[2017-03-17 17:49] VITALS: BP 183/74
[2017-03-17 19:43] VITALS: BP 129/65
[2017-03-17 20:06] LABS: TROP-I INTERPRETATION NEGATIVE; TROPONIN-I 0.03 ng/mL (0.0-0.30)
[2017-03-17 22:50] VITALS: BP 164/72
[2017-03-18 03:15] VITALS: BP 126/57
[2017-03-18 04:23] LABS: INTER. NORMALIZED RATIO 1.4; PROTHROMBIN TIME 14.1 (9.2-11.2)
[2017-03-18 04:26] LABS: CHLORIDE 98 mEq/L (99-109); POTASSIUM 3.8 mEq/L (3.7-5.4); SODIUM 143 mEq/L (136-147)
[2017-03-18 04:28] LABS: GLUCOSE 99 mg/dL (70-99)
[2017-03-18 04:29] LABS: ANION GAP 9 MEQ/L (2-14)
[2017-03-18 04:32] LABS: GFR ESTIMATE (CALCULATED) 53 mL/min/; UREA NITROGEN (BUN) 23 mg/dL (9-23)
[2017-03-18 04:40] LABS: TROP-I INTERPRETATION NEGATIVE; TROPONIN-I 0.02 ng/mL (0.0-0.30)
[2017-03-18 08:14] VITALS: BP 163/77
[2017-03-18 12:29] VITALS: BP 130/74
[2017-03-18 15:31] VITALS: BP 156/77
[2017-03-18 19:38] VITALS: BP 145/69
[2017-03-19] VITALS (7 sets, daily range): BP systolic 132–148; BP diastolic 67–81
[2017-03-19 07:03] LABS: INTER. NORMALIZED RATIO 1.8; PROTHROMBIN TIME 20.1 SEC (10.2-12.9)
[2017-03-20 03:42] VITALS: BP 136/69
[2017-03-20 07:08] VITALS: BP 145/67
[2017-03-20 07:12] LABS: INTER. NORMALIZED RATIO 2.1; PROTHROMBIN TIME 23.6 SEC (10.2-12.9)
[2017-03-20 07:23] LABS: HEMATOCRIT 33.4 % (36.0-46.0); MCH 30.4 PG (29.0-34.0); MCV 94.9 FL (83-99); MEAN PLAT.VOLUME 9.7 uM^3 (9.5-12.4); PLATELET COUNT 240 K/uL (156-360); RBC DIS.WIDTH-CV 16.2 % (11.8-14.6); RBC DIS.WIDTH-SD 56.4 % (39-53); RED BLOOD COUNT 3.52 M/uL (3.80-5.20); WHITE BLOOD COUNT 7.8 K/uL (4.1-10.2)
[2017-03-20 07:28] LABS: ANION GAP 7 MEQ/L (2-14); CHLORIDE 100 MEQ/L (99-109); GFR ESTIMATE (CALCULATED) 59 mL/min/; GLUCOSE 80 mg/dL (70-99); POTASSIUM 4.2 MEQ/L (3.7-5.4); SAMPLE HEMOLYSIS CHECK 0; SAMPLE ICTERIC CHECK 0; SAMPLE LIPEMIA CHECK 0; SODIUM 145 MEQ/L (136-147); UREA NITROGEN (BUN) 17 mg/dL (9-23)
[2017-03-20 11:00] VITALS: BP 136/63
[2017-03-20 14:58] VITALS: BP 128/60
[2017-03-20 21:12] VITALS: BP 162/72
[2017-03-21] VITALS (7 sets, daily range): BP systolic 134–169; BP diastolic 64–91
[2017-03-21 07:44] LABS: INTER. NORMALIZED RATIO 2.2
[2017-03-22] VITALS (7 sets, daily range): BP systolic 114–154; BP diastolic 58–71
[2017-03-22 07:33] LABS: HEMATOCRIT 34.9 % (36.0-46.0); MCH 30.9 PG (29.0-34.0); MCHC 32.4 G/DL (30.0-36.0); MCV 95.4 FL (83-99); MEAN PLAT.VOLUME 9.8 uM^3 (9.5-12.4); PLATELET COUNT 258 K/uL (156-360); RBC DIS.WIDTH-SD 56.8 % (39-53); RED BLOOD COUNT 3.66 M/uL (3.80-5.20); WHITE BLOOD COUNT 9.9 K/uL (4.1-10.2)
[2017-03-22 07:40] LABS: INTER. NORMALIZED RATIO 2.3; PROTHROMBIN TIME 26.5 SEC (10.2-12.9)
[2017-03-22 08:03] LABS: ANION GAP 8 MEQ/L (2-14); CHLORIDE 99 MEQ/L (99-109); GFR ESTIMATE (CALCULATED) 59 mL/min/; POTASSIUM 4.7 MEQ/L (3.7-5.4); SAMPLE HEMOLYSIS CHECK 0; SAMPLE ICTERIC CHECK 0; SAMPLE LIPEMIA CHECK 0; SODIUM 142 MEQ/L (136-147); UREA NITROGEN (BUN) 19 mg/dL (9-23)
[2017-03-22 08:11] LABS: GLUCOSE 123 mg/dL (70-99)
[2017-03-23 03:43] VITALS: BP 143/63
[2017-03-23 06:53] LABS: INTER. NORMALIZED RATIO 2.5; PROTHROMBIN TIME 29.1 SEC (10.2-12.9)
[2017-03-23 07:15] VITALS: BP 147/73
[2017-03-23 11:04] VITALS: BP 134/72
[2017-03-23 15:33] VITALS: BP 135/63
[2017-03-23 18:22] LABS: BASE EXCESS 8.2 mEq/L (-3 to +3); BICARBONATE 33.9 mEq/L (22-26); CARBOXY HGB 1.4 % (0-5); COMMENTS - BLOOD GASES A+C+; METHEMOGLOBIN 1.5 % (0-1.5); PCO2 51 mm Hg (35-45); PO2 107 mm Hg (80-100); SITE RR; pH 7.43 (7.35-7.45)
[2017-03-23 18:23] LABS: DEVICE NC; O2 FLOW 3 L/MIN; TOTAL RESP RATE 23 resp/min
[2017-03-23 19:08] VITALS: BP 162/63
[2017-03-23 23:57] VITALS: BP 154/70
[2017-03-24 03:30] VITALS: BP 150/75
[2017-03-24 07:13] LABS: INTER. NORMALIZED RATIO 2.3; PROTHROMBIN TIME 26.2 SEC (10.2-12.9)
[2017-03-24 07:55] VITALS: BP 132/62
[2017-03-24 12:00] VITALS: BP 131/61
[2017-03-24 12:06] LABS: BASE EXCESS 9.6 mEq/L (-3 to +3); BICARBONATE 34.3 mEq/L (22-26); CARBOXY HGB 1.8 % (0-5); METHEMOGLOBIN 1.7 % (0-1.5); PCO2 46 mm Hg (35-45); PO2 90 mm Hg (80-100); pH 7.48 (7.35-7.45)
[2017-03-24 12:07] LABS: COMMENTS - BLOOD GASES NEG A+C+; DEVICE NC; O2 FLOW 2 L/MIN; SITE LR; TOTAL RESP RATE 20 resp/min
[2017-03-24 16:13] VITALS: BP 136/87
[2017-03-24 17:02] LABS: EOSINOPHIL (%) 0 % (0-5); HEMATOCRIT 38.8 % (36.0-46.0); IMMATURE GRANULOCYTE (%) 1.5 % (0.0-0.7); IMMATURE GRANULOCYTE COUNT 0.3 K/uL; INSTRUMENT ABS NEUTROPHIL CT 14.9 K/uL; LYMPHOCYTE COUNT 0.9 K/uL (1.0-2.8); MCH 30.4 PG (29.0-34.0); MCHC 32.2 G/DL (30.0-36.0); MCV 94.4 FL (83-99); MEAN PLAT.VOLUME 10.2 uM^3 (9.5-12.4); MONOCYTE (%) 7.7 % (3-12); MONOCYTE COUNT 1.3 K/uL (0-0.8); NEUTROPHIL (%) 85.7 % (45-76); NEUTROPHIL COUNT 14.9 K/uL (1.8-6.4); NRBC (%) 0.2 /100 WBC (0-0); PLATELET COUNT 315 K/uL (156-360); RBC DIS.WIDTH-CV 16.3 % (11.8-14.6); RBC DIS.WIDTH-SD 57.1 % (39-53); RED BLOOD COUNT 4.11 M/uL (3.80-5.20); WHITE BLOOD COUNT 17.3 K/uL (4.1-10.2)
[2017-03-24 17:16] LABS: BASE EXCESS 11.1 mEq/L (-3 to +3); BICARBONATE 36.4 mEq/L (22-26); CARBOXY HGB 1.6 % (0-5); COMMENTS - BLOOD GASES C+; DEVICE NC; METHEMOGLOBIN 1.6 % (0-1.5); O2 FLOW 3 L/MIN; PCO2 50 mm Hg (35-45); PO2 84 mm Hg (80-100); SITE RR; TOTAL RESP RATE 22 resp/min; pH 7.47 (7.35-7.45)
[2017-03-24 17:20] LABS: ANION GAP 14 MEQ/L (2-14); CHLORIDE 96 MEQ/L (99-109); POTASSIUM 4.9 MEQ/L (3.7-5.4); SAMPLE HEMOLYSIS CHECK 1; SAMPLE ICTERIC CHECK 0; SAMPLE LIPEMIA CHECK 0; SODIUM 139 MEQ/L (136-147)
[2017-03-24 17:28] LABS: TROP-I INTERPRETATION NEGATIVE; TROPONIN-I 0.03 ng/mL (0.0-0.30)
[2017-03-24 17:53] LABS: GFR ESTIMATE (CALCULATED) 48 mL/min/; GLUCOSE 164 mg/dL (70-99)
[2017-03-24 17:55] LABS: UREA NITROGEN (BUN) 32 mg/dL (9-23)
[2017-03-24 19:16] VITALS: BP 172/70
[2017-03-24 23:13] VITALS: BP 120/69
[2017-03-25 03:19] VITALS: BP 144/70
[2017-03-25 06:57] LABS: EOSINOPHIL (%) 0 % (0-5); HEMATOCRIT 39.2 % (36.0-46.0); IMMATURE GRANULOCYTE (%) 1.6 % (0.0-0.7); IMMATURE GRANULOCYTE COUNT 0.3 K/uL; INSTRUMENT ABS NEUTROPHIL CT 15.9 K/uL; LYMPHOCYTE COUNT 0.9 K/uL (1.0-2.8); MCH 29.4 PG (29.0-34.0); MCHC 31.1 G/DL (30.0-36.0); MCV 94.5 FL (83-99); MEAN PLAT.VOLUME 10.2 uM^3 (9.5-12.4); MONOCYTE (%) 5.2 % (3-12); MONOCYTE COUNT 0.9 K/uL (0-0.8); NEUTROPHIL (%) 88.2 % (45-76); NEUTROPHIL COUNT 15.9 K/uL (1.8-6.4); NRBC (%) 0.1 /100 WBC (0-0); PLATELET COUNT 330 K/uL (156-360); RBC DIS.WIDTH-CV 16.3 % (11.8-14.6); RBC DIS.WIDTH-SD 56.6 % (39-53); RED BLOOD COUNT 4.15 M/uL (3.80-5.20); WHITE BLOOD COUNT 18.1 K/uL (4.1-10.2)
[2017-03-25 07:02] LABS: INTER. NORMALIZED RATIO 2.4; PROTHROMBIN TIME 27.4 SEC (10.2-12.9)
[2017-03-25 07:26] LABS: ANION GAP 12 MEQ/L (2-14); CHLORIDE 94 MEQ/L (99-109); GFR ESTIMATE (CALCULATED) 48 mL/min/; GLUCOSE 170 mg/dL (70-99); MAGNESIUM 2.5 mg/dl (1.3-2.7); POTASSIUM 4.6 MEQ/L (3.7-5.4); SAMPLE HEMOLYSIS CHECK 0; SAMPLE ICTERIC CHECK 0; SAMPLE LIPEMIA CHECK 0; SODIUM 140 MEQ/L (136-147); UREA NITROGEN (BUN) 33 mg/dL (9-23)
[2017-03-25 07:40] VITALS: BP 145/86
[2017-03-25 12:05] VITALS: BP 159/88
[2017-03-25 15:45] VITALS: BP 165/79
[2017-03-25 19:27] VITALS: BP 144/74
[2017-03-25 23:20] VITALS: BP 140/70
[2017-03-26 03:35] VITALS: BP 166/78
[2017-03-26 06:25] LABS: EOSINOPHIL (%) 0 % (0-5); HEMATOCRIT 35.6 % (36.0-46.0); IMMATURE GRANULOCYTE (%) 2.1 % (0.0-0.7); IMMATURE GRANULOCYTE COUNT 0.3 K/uL; INSTRUMENT ABS NEUTROPHIL CT 14.1 K/uL; LYMPHOCYTE COUNT 0.7 K/uL (1.0-2.8); MCH 29.9 PG (29.0-34.0); MCHC 31.7 G/DL (30.0-36.0); MCV 94.2 FL (83-99); MONOCYTE (%) 5.2 % (3-12); MONOCYTE COUNT 0.8 K/uL (0-0.8); NEUTROPHIL (%) 88.5 % (45-76); NEUTROPHIL COUNT 14.1 K/uL (1.8-6.4); NRBC (%) 0.1 /100 WBC (0-0); PLATELET COUNT 291 K/uL (156-360); RBC DIS.WIDTH-CV 16.3 % (11.8-14.6); RBC DIS.WIDTH-SD 56.5 % (39-53); RED BLOOD COUNT 3.78 M/uL (3.80-5.20); WHITE BLOOD COUNT 15.9 K/uL (4.1-10.2)
[2017-03-26 06:26] LABS: INTER. NORMALIZED RATIO 2.8; PROTHROMBIN TIME 32.1 SEC (10.2-12.9)
[2017-03-26 06:52] LABS: ALKALINE PHOSPHATASE 86 IU/L (3-129); ANION GAP 9 MEQ/L (2-14); CHLORIDE 94 MEQ/L (99-109); GFR ESTIMATE (CALCULATED) 40 mL/min/; GLUCOSE 172 mg/dL (70-99); POTASSIUM 5.3 MEQ/L (3.7-5.4); SAMPLE HEMOLYSIS CHECK 0; SAMPLE ICTERIC CHECK 0; SAMPLE LIPEMIA CHECK 0; SODIUM 139 MEQ/L (136-147); TOTAL BILIRUBIN 0.5 MG/DL (0.0-1.0); UREA NITROGEN (BUN) 44 mg/dL (9-23)
[2017-03-26 09:00] VITALS: BP 138/65
[2017-03-26 15:30] VITALS: BP 134/63
[2017-03-26 19:23] VITALS: BP 139/71
[2017-03-27 00:38] VITALS: BP 148/69
[2017-03-27 04:13] VITALS: BP 147/69
[2017-03-27 05:38] LABS: EOSINOPHIL (%) 0 % (0-5); IMMATURE GRANULOCYTE (%) 1.5 % (0.0-0.7); IMMATURE GRANULOCYTE COUNT 0.2 K/uL; INSTRUMENT ABS NEUTROPHIL CT 13.7 K/uL; LYMPHOCYTE COUNT 0.4 K/uL (1.0-2.8); MCHC 31.1 G/DL (30.0-36.0); MCV 93.3 FL (83-99); MEAN PLAT.VOLUME 9.7 uM^3 (9.5-12.4); MONOCYTE (%) 5.6 % (3-12); MONOCYTE COUNT 0.8 K/uL (0-0.8); NEUTROPHIL (%) 90.3 % (45-76); NEUTROPHIL COUNT 13.7 K/uL (1.8-6.4); PLATELET COUNT 282 K/uL (156-360); RBC DIS.WIDTH-CV 15.9 % (11.8-14.6); RBC DIS.WIDTH-SD 54.7 % (39-53); RED BLOOD COUNT 3.86 M/uL (3.80-5.20); WHITE BLOOD COUNT 15.1 K/uL (4.1-10.2)
[2017-03-27 06:07] LABS: ALKALINE PHOSPHATASE 73 IU/L (3-129); ANION GAP 8 MEQ/L (2-14); CHLORIDE 95 MEQ/L (99-109); GFR ESTIMATE (CALCULATED) 48 mL/min/; GLUCOSE 180 mg/dL (70-99); SAMPLE HEMOLYSIS CHECK 0; SAMPLE ICTERIC CHECK 0; SAMPLE LIPEMIA CHECK 0; SODIUM 140 MEQ/L (136-147); TOTAL BILIRUBIN 0.5 MG/DL (0.0-1.0); UREA NITROGEN (BUN) 46 mg/dL (9-23)
[2017-03-27 06:15] LABS: POTASSIUM 4.1 MEQ/L (3.7-5.4)
[2017-03-27 07:23] VITALS: BP 154/65
[2017-03-27 13:01] LABS: PROTHROMBIN TIME 34.6 SEC (10.2-12.9)
[2017-03-27 15:05] VITALS: BP 135/73
[2017-03-27 18:47] LABS: ADD MIUA? YES; BILIRUBIN NEGATIVE; BLOOD MODERATE; COLOR YELLOW ((YELLOW)); GLUCOSE (STRIP) 50; KETONES NEGATIVE; LEUKOCYTES SMALL; NITRITE NEGATIVE; PROTEIN (STRIP) NEGATIVE; SPECIFIC GRAVITY 1.015 (1.000-1.030); UROBILINOGEN 0.2 MG/DL (0.2-1.0)
[2017-03-27 19:36] LABS: BACTERIA RARE /HPF; EPITHELIAL CELLS 1+ /HPF; MUCUS TRACE /LPF; UCUL ADDED? NO
[2017-03-27 23:24] VITALS: BP 168/78
[2017-03-28 05:51] LABS: EOSINOPHIL (%) 0 % (0-5); HEMATOCRIT 35.8 % (36.0-46.0); IMMATURE GRANULOCYTE (%) 1.9 % (0.0-0.7); IMMATURE GRANULOCYTE COUNT 0.3 K/uL; INSTRUMENT ABS NEUTROPHIL CT 13.2 K/uL; LYMPHOCYTE COUNT 0.3 K/uL (1.0-2.8); MCH 30.9 PG (29.0-34.0); MCHC 32.7 G/DL (30.0-36.0); MCV 94.5 FL (83-99); MEAN PLAT.VOLUME 10.2 uM^3 (9.5-12.4); MONOCYTE (%) 6.2 % (3-12); MONOCYTE COUNT 0.9 K/uL (0-0.8); NEUTROPHIL (%) 89.7 % (45-76); NEUTROPHIL COUNT 13.2 K/uL (1.8-6.4); PLATELET COUNT 291 K/uL (156-360); RBC DIS.WIDTH-CV 16.3 % (11.8-14.6); RBC DIS.WIDTH-SD 56.4 % (39-53); RED BLOOD COUNT 3.79 M/uL (3.80-5.20); WHITE BLOOD COUNT 14.7 K/uL (4.1-10.2)
[2017-03-28 06:11] LABS: ALKALINE PHOSPHATASE 80 IU/L (3-129); ANION GAP 10 MEQ/L (2-14); CHLORIDE 96 MEQ/L (99-109); GFR ESTIMATE (CALCULATED) 48 mL/min/; GLUCOSE 192 mg/dL (70-99); POTASSIUM 4.3 MEQ/L (3.7-5.4); SAMPLE HEMOLYSIS CHECK 0; SAMPLE ICTERIC CHECK 0; SAMPLE LIPEMIA CHECK 0; SODIUM 142 MEQ/L (136-147); TOTAL BILIRUBIN 0.5 MG/DL (0.0-1.0); UREA NITROGEN (BUN) 46 mg/dL (9-23)
[2017-03-28 06:36] LABS: INTER. NORMALIZED RATIO 3.2; PROTHROMBIN TIME 36.7 SEC (10.2-12.9)
[2017-03-28 07:20] VITALS: BP 171/80
[2017-03-28 16:42] VITALS: BP 157/80
[2017-03-28 23:39] VITALS: BP 144/72
[2017-03-29 06:40] LABS: INTER. NORMALIZED RATIO 3.4; PROTHROMBIN TIME 39.4 SEC (10.2-12.9)
[2017-03-29 07:05] VITALS: BP 164/76
[2017-03-29] MEDS ORDERED: DEXILANT60 MG PO (09:26)
[2017-03-29 16:58] VITALS: BP 170/76
[2017-03-30 00:14] VITALS: BP 156/70
[2017-03-30 06:49] LABS: EOSINOPHIL (%) 0 % (0-5); HEMATOCRIT 38.2 % (36.0-46.0); IMMATURE GRANULOCYTE (%) 2.8 % (0.0-0.7); IMMATURE GRANULOCYTE COUNT 0.5 K/uL; INSTRUMENT ABS NEUTROPHIL CT 14.7 K/uL; LYMPHOCYTE COUNT 0.6 K/uL (1.0-2.8); MCH 29.8 PG (29.0-34.0); MCHC 31.4 G/DL (30.0-36.0); MCV 94.8 FL (83-99); MEAN PLAT.VOLUME 10.1 uM^3 (9.5-12.4); MONOCYTE (%) 8.1 % (3-12); MONOCYTE COUNT 1.4 K/uL (0-0.8); NEUTROPHIL (%) 85.5 % (45-76); NEUTROPHIL COUNT 14.7 K/uL (1.8-6.4); PLATELET COUNT 300 K/uL (156-360); RBC DIS.WIDTH-CV 15.7 % (11.8-14.6); RBC DIS.WIDTH-SD 54.5 % (39-53); RED BLOOD COUNT 4.03 M/uL (3.80-5.20); WHITE BLOOD COUNT 17.2 K/uL (4.1-10.2)
[2017-03-30 07:15] VITALS: BP 171/80
[2017-03-30 07:29] LABS: ALKALINE PHOSPHATASE 69 IU/L (3-129); ANION GAP 11 MEQ/L (2-14); CHLORIDE 93 MEQ/L (99-109); GFR ESTIMATE (CALCULATED) 48 mL/min/; GLUCOSE 174 mg/dL (70-99); POTASSIUM 4.4 MEQ/L (3.7-5.4); SAMPLE HEMOLYSIS CHECK 0; SAMPLE ICTERIC CHECK 0; SAMPLE LIPEMIA CHECK 0; SODIUM 142 MEQ/L (136-147); UREA NITROGEN (BUN) 45 mg/dL (9-23)
[2017-03-30 07:30] LABS: TOTAL BILIRUBIN 0.7 MG/DL (0.0-1.0)
[2017-03-30 07:37] LABS: INTER. NORMALIZED RATIO 3.1; PROTHROMBIN TIME 35.5 SEC (10.2-12.9)
[2017-03-30 17:04] VITALS: BP 118/60
[2017-03-30 23:16] VITALS: BP 104/48
[2017-03-31 07:13] LABS: INTER. NORMALIZED RATIO 2.8; PROTHROMBIN TIME 31.6 SEC (10.2-12.9)
[2017-03-31 07:45] VITALS: BP 156/64
[2017-03-31 15:46] VITALS: BP 138/64
[2017-03-31 23:06] VITALS: BP 133/58
[2017-04-01 07:05] VITALS: BP 132/67
[2017-04-01 07:13] LABS: EOSINOPHIL (%) 0 % (0-5); HEMATOCRIT 39.3 % (36.0-46.0); IMMATURE GRANULOCYTE (%) 4.1 % (0.0-0.7); IMMATURE GRANULOCYTE COUNT 0.8 K/uL; INSTRUMENT ABS NEUTROPHIL CT 15.5 K/uL; MCH 30.8 PG (29.0-34.0); MCHC 32.6 G/DL (30.0-36.0); MCV 94.7 FL (83-99); MEAN PLAT.VOLUME 9.9 uM^3 (9.5-12.4); MONOCYTE (%) 7.9 % (3-12); MONOCYTE COUNT 1.5 K/uL (0-0.8); NEUTROPHIL (%) 82.7 % (45-76); NEUTROPHIL COUNT 15.5 K/uL (1.8-6.4); PLATELET COUNT 301 K/uL (156-360); RBC DIS.WIDTH-CV 15.6 % (11.8-14.6); RED BLOOD COUNT 4.15 M/uL (3.80-5.20); WHITE BLOOD COUNT 18.7 K/uL (4.1-10.2)
[2017-04-01 07:26] LABS: INTER. NORMALIZED RATIO 2.9; PROTHROMBIN TIME 32.8 SEC (10.2-12.9)
[2017-04-01 07:37] LABS: ALKALINE PHOSPHATASE 67 IU/L (3-129); ANION GAP ND MEQ/L (2-14); CARBON DIOXIDE (BICARBONATE) > 40.0 MEQ/L (20-31); CHLORIDE 89 MEQ/L (99-109); GFR ESTIMATE (CALCULATED) 53 mL/min/; GLUCOSE 136 mg/dL (70-99); POTASSIUM 4.5 MEQ/L (3.7-5.4); SAMPLE HEMOLYSIS CHECK 0; SAMPLE ICTERIC CHECK 0; SAMPLE LIPEMIA CHECK 0; SODIUM 138 MEQ/L (136-147); TOTAL BILIRUBIN 1.1 MG/DL (0.0-1.0); UREA NITROGEN (BUN) 45 mg/dL (9-23)
[2017-04-01] MEDS ORDERED: COUMADIN2 MG PO (11:30)
[2017-04-01] MEDS ORDERED: SANTYL30 GM TP (11:30)
[2017-04-01] MEDS ORDERED: HYDROCHLOROTHIA25 MG PO (11:30)
[2017-04-01] MEDS ORDERED: MYCOSTATIN 100,60 ML PO (11:30)
[2017-04-01] MEDS ORDERED: ENALAPRIL MALEAT5 MG PO (11:30)
[2017-04-01] MEDS ORDERED: CARDIZEM30 MG PO (11:30)
[2017-04-01 11:47] VITALS: BP 138/63
[2017-04-01] MEDS ORDERED: PERCOCET 10/1 TABLET PO (13:09)
== END 2017-04-01 15:53 | disposition home health service (06) | DRG 190 ==
LOC: EME 09:43 → 2EAST 14:07 → EDOF 14:07 → 2EAST 17:42
PROVIDERS: Emergency Medicine; Hospitalist; Internal Medicine; Internal Medicine Pulmonary Disease; Physician Assistant
DX: J44.0 Chronic obstructive pulmonary disease with (acute) lower respiratory infection (principal); J96.21 Acute and chronic respiratory failure with hypoxia; I50.33 Acute on chronic diastolic (congestive) heart failure; I83.218 Varicose veins of right lower extremity with both ulcer of other part of lower extremity and inflammation; I83.228 Varicose veins of left lower extremity with both ulcer of other part of lower extremity and inflammation; I82.542 Chronic embolism and thrombosis of left tibial vein; L97.812 Non-pressure chronic ulcer of other part of right lower leg with fat layer exposed; L97.822 Non-pressure chronic ulcer of other part of left lower leg with fat layer exposed; I13.0 Hypertensive heart and chronic kidney disease with heart failure and stage 1 through stage 4 chronic kidney disease, or unspecified chronic kidney disease; B37.0 Candidal stomatitis; F33.9 Major depressive disorder, recurrent, unspecified; E87.3 Alkalosis; I82.532 Chronic embolism and thrombosis of left popliteal vein; I82.522 Chronic embolism and thrombosis of left iliac vein; I82.513 Chronic embolism and thrombosis of femoral vein, bilateral; I27.2 Other secondary pulmonary hypertension; J20.9 Acute bronchitis, unspecified; I27.81 Cor pulmonale (chronic); I87.8 Other specified disorders of veins; K21.9 Gastro-esophageal reflux disease without esophagitis; L01.00 Impetigo, unspecified; E03.9 Hypothyroidism, unspecified; E78.5 Hyperlipidemia, unspecified; F17.210 Nicotine dependence, cigarettes, uncomplicated; G47.33 Obstructive sleep apnea (adult) (pediatric); R79.1 Abnormal coagulation profile; T45.515A Adverse effect of anticoagulants, initial encounter; Z99.81 Dependence on supplemental oxygen; Z90.710 Acquired absence of both cervix and uterus; Z90.49 Acquired absence of other specified parts of digestive tract; Z79.51 Long term (current) use of inhaled steroids; Z79.01 Long term (current) use of anticoagulants
CPT/HCPCS: 36600; 71010; 71020; 71275; 74000; 80048; 80053; 81003; 82803; 82948; 83735; 83880; 84484; 85025; 85027; 85610; 87040; 93005; 93970; 94640 76; 94660; 94760; 94799; 99202; 99281; 99284; J0690; J0696; J1650; J1940; J2920; J2930; J3370; J7050; J7512

== ENCOUNTER 2017-04-23 15:53 | Inpatient (IN) | payer OTHER ==
[~2017-04-23] VITALS: Ht 165.1 cm; Wt 84.3 kg
[~2017-04-23 15:53] MED LIST changes: +CARDIZEM30 MG PO; +COUMADIN2 MG PO; +ENALAPRIL MALEAT5 MG PO; +HYDROCHLOROTHIA25 MG PO; +KEFLEX500 MG PO; +PERCOCET 10/1 TABLET PO; +SANTYL30 GM TP
[2017-04-23 17:15] LABS: HEMATOCRIT 34.8 % (36.0-46.0); MCH 30.4 PG (29.0-34.0); MCHC 31.6 G/DL (30.0-36.0); MCV 96.1 FL (83-99); MEAN PLAT.VOLUME 9.5 uM^3 (9.5-12.4); PLATELET COUNT 337 K/uL (156-360); RBC DIS.WIDTH-CV 16.8 % (11.8-14.6); RBC DIS.WIDTH-SD 59.5 % (39-53); RED BLOOD COUNT 3.62 M/uL (3.80-5.20); WHITE BLOOD COUNT 6.8 K/uL (4.1-10.2)
[2017-04-23 17:24] LABS: CHLORIDE 99 mEq/L (99-109); SODIUM 143 mEq/L (136-147)
[2017-04-23 17:26] LABS: GLUCOSE 117 mg/dL (70-99)
[2017-04-23 17:27] LABS: ANION GAP 12 MEQ/L (2-14)
[2017-04-23 17:30] LABS: GFR ESTIMATE (CALCULATED) 43 mL/min/
[2017-04-23 17:31] LABS: UREA NITROGEN (BUN) 23 mg/dL (9-23)
[2017-04-23 17:37] LABS: TROP-I INTERPRETATION NEGATIVE; TROPONIN-I 0.05 ng/mL (0.0-0.30)
[2017-04-23] MEDS ORDERED: CALAN40 MG PO (20:47)
[2017-04-23] MEDS ORDERED: ATIVAN0.5 MG PO (20:48)
[2017-04-23 21:49] LABS: INTER. NORMALIZED RATIO 1.9; PROTHROMBIN TIME 21.5 SEC (10.2-12.9)
[2017-04-23 21:52] LABS: PTT 31.2 SEC (25-37)
[2017-04-23 22:50] VITALS: BP 152/82
[2017-04-24 00:32] LABS: TROP-I INTERPRETATION NEGATIVE; TROPONIN-I 0.04 ng/mL (0.0-0.30)
[2017-04-24 04:25] VITALS: BP 142/72
[2017-04-24 06:35] LABS: MCH 29.8 PG (29.0-34.0); MCHC 31.5 G/DL (30.0-36.0); MCV 94.6 FL (83-99); MEAN PLAT.VOLUME 9.4 uM^3 (9.5-12.4); PLATELET COUNT 302 K/uL (156-360); RBC DIS.WIDTH-CV 16.5 % (11.8-14.6); RBC DIS.WIDTH-SD 57.2 % (39-53); RED BLOOD COUNT 3.49 M/uL (3.80-5.20); WHITE BLOOD COUNT 7.7 K/uL (4.1-10.2)
[2017-04-24 06:49] LABS: INTER. NORMALIZED RATIO 1.9
[2017-04-24 07:00] LABS: ALKALINE PHOSPHATASE 96 IU/L (3-129); ANION GAP 10 MEQ/L (2-14); CHLORIDE 99 MEQ/L (99-109); GFR ESTIMATE (CALCULATED) 48 mL/min/; GLUCOSE 156 mg/dL (70-99); POTASSIUM 4.1 MEQ/L (3.7-5.4); SAMPLE HEMOLYSIS CHECK 0; SAMPLE ICTERIC CHECK 0; SAMPLE LIPEMIA CHECK 0; SODIUM 143 MEQ/L (136-147); TOTAL BILIRUBIN 0.7 MG/DL (0.0-1.0); UREA NITROGEN (BUN) 25 mg/dL (9-23)
[2017-04-24 07:09] LABS: TROP-I INTERPRETATION NEGATIVE; TROPONIN-I 0.05 ng/mL (0.0-0.30)
[2017-04-24 07:26] VITALS: BP 131/63
[2017-04-24 11:25] VITALS: BP 151/64
[2017-04-24 15:28] VITALS: BP 135/60
[2017-04-24 19:19] VITALS: BP 126/61
[2017-04-24 23:49] VITALS: BP 165/71
[2017-04-25 03:49] VITALS: BP 143/66
[2017-04-25 06:19] LABS: MCH 30.7 PG (29.0-34.0); MCHC 31.8 G/DL (30.0-36.0); MCV 96.6 FL (83-99); MEAN PLAT.VOLUME 9.7 uM^3 (9.5-12.4); PLATELET COUNT 342 K/uL (156-360); RBC DIS.WIDTH-CV 16.9 % (11.8-14.6); RBC DIS.WIDTH-SD 59.4 % (39-53); RED BLOOD COUNT 3.52 M/uL (3.80-5.20); WHITE BLOOD COUNT 13.4 K/uL (4.1-10.2)
[2017-04-25 06:28] LABS: INTER. NORMALIZED RATIO 2.2; PROTHROMBIN TIME 25.2 SEC (10.2-12.9)
[2017-04-25 06:48] LABS: ANION GAP 11 MEQ/L (2-14); CHLORIDE 96 MEQ/L (99-109); GFR ESTIMATE (CALCULATED) 40 mL/min/; GLUCOSE 168 mg/dL (70-99); MAGNESIUM 2.2 mg/dl (1.3-2.7); POTASSIUM 4.8 MEQ/L (3.7-5.4); SAMPLE HEMOLYSIS CHECK 0; SAMPLE ICTERIC CHECK 0; SAMPLE LIPEMIA CHECK 0; SODIUM 141 MEQ/L (136-147); UREA NITROGEN (BUN) 33 mg/dL (9-23)
[2017-04-25 07:40] VITALS: BP 146/73
[2017-04-25 11:50] VITALS: BP 146/70
[2017-04-25 15:00] VITALS: BP 131/64
[2017-04-25 19:20] VITALS: BP 129/65
[2017-04-25 23:28] VITALS: BP 130/62
[2017-04-26 03:16] VITALS: BP 132/72
[2017-04-26 06:48] LABS: HEMATOCRIT 32.3 % (36.0-46.0); MCH 30.9 PG (29.0-34.0); MCHC 32.2 G/DL (30.0-36.0); MCV 95.8 FL (83-99); MEAN PLAT.VOLUME 9.9 uM^3 (9.5-12.4); NRBC (%) 0.2 /100 WBC (0-0); PLATELET COUNT 329 K/uL (156-360); RBC DIS.WIDTH-CV 17.1 % (11.8-14.6); RBC DIS.WIDTH-SD 59.7 % (39-53); RED BLOOD COUNT 3.37 M/uL (3.80-5.20)
[2017-04-26 07:06] LABS: INTER. NORMALIZED RATIO 2.9; PROTHROMBIN TIME 32.8 SEC (10.2-12.9)
[2017-04-26 07:12] LABS: ANION GAP 13 MEQ/L (2-14); CHLORIDE 93 MEQ/L (99-109); GFR ESTIMATE (CALCULATED) 32 mL/min/; GLUCOSE 165 mg/dL (70-99); POTASSIUM 4.5 MEQ/L (3.7-5.4); SAMPLE HEMOLYSIS CHECK 0; SAMPLE ICTERIC CHECK 0; SAMPLE LIPEMIA CHECK 0; SODIUM 139 MEQ/L (136-147); UREA NITROGEN (BUN) 41 mg/dL (9-23)
[2017-04-26 07:15] VITALS: BP 140/64
[2017-04-26 11:10] VITALS: BP 127/67
[2017-04-26 15:40] VITALS: BP 130/67
[2017-04-26 19:38] VITALS: BP 132/60
[2017-04-26 23:10] VITALS: BP 192/84
[2017-04-27] VITALS (7 sets, daily range): BP systolic 121–154; BP diastolic 66–85
[2017-04-27 09:41] LABS: HEMATOCRIT 34.6 % (36.0-46.0); MCH 30.2 PG (29.0-34.0); MCHC 31.2 G/DL (30.0-36.0); MCV 96.6 FL (83-99); NRBC (%) 0.1 /100 WBC (0-0); PLATELET COUNT 344 K/uL (156-360); RBC DIS.WIDTH-CV 16.6 % (11.8-14.6); RBC DIS.WIDTH-SD 59.1 % (39-53); RED BLOOD COUNT 3.58 M/uL (3.80-5.20); WHITE BLOOD COUNT 14.9 K/uL (4.1-10.2)
[2017-04-27 09:47] LABS: INTER. NORMALIZED RATIO 3.3; PROTHROMBIN TIME 37.8 SEC (10.2-12.9)
[2017-04-27 10:34] LABS: ANION GAP 11 MEQ/L (2-14); CHLORIDE 95 MEQ/L (99-109); GFR ESTIMATE (CALCULATED) 37 mL/min/; GLUCOSE 203 mg/dL (70-99); POTASSIUM 5.4 MEQ/L (3.7-5.4); SAMPLE HEMOLYSIS CHECK 2; SAMPLE ICTERIC CHECK 0; SAMPLE LIPEMIA CHECK 0; SODIUM 135 MEQ/L (136-147); UREA NITROGEN (BUN) 47 mg/dL (9-23)
[2017-04-28 06:19] LABS: HEMATOCRIT 33.4 % (36.0-46.0); MCH 31.1 PG (29.0-34.0); MCV 97.1 FL (83-99); MEAN PLAT.VOLUME 9.8 uM^3 (9.5-12.4); NRBC (%) 0.2 /100 WBC (0-0); PLATELET COUNT 322 K/uL (156-360); RBC DIS.WIDTH-CV 16.8 % (11.8-14.6); RBC DIS.WIDTH-SD 59.4 % (39-53); RED BLOOD COUNT 3.44 M/uL (3.80-5.20); WHITE BLOOD COUNT 15.8 K/uL (4.1-10.2)
[2017-04-28 06:40] LABS: INTER. NORMALIZED RATIO 3.6; PROTHROMBIN TIME 41.3 SEC (10.2-12.9)
[2017-04-28 06:41] LABS: ANION GAP 9 MEQ/L (2-14); CHLORIDE 98 MEQ/L (99-109); GFR ESTIMATE (CALCULATED) 40 mL/min/; GLUCOSE 173 mg/dL (70-99); POTASSIUM 5.3 MEQ/L (3.7-5.4); SAMPLE HEMOLYSIS CHECK 0; SAMPLE ICTERIC CHECK 0; SAMPLE LIPEMIA CHECK 0; SODIUM 140 MEQ/L (136-147); UREA NITROGEN (BUN) 51 mg/dL (9-23)
[2017-04-28 07:46] VITALS: BP 159/75
[2017-04-28 11:25] VITALS: BP 150/74
[2017-04-28 16:16] VITALS: BP 140/75
[2017-04-28 19:52] VITALS: BP 147/76
[2017-04-28 23:53] VITALS: BP 134/72
[2017-04-29 04:04] VITALS: BP 130/65
[2017-04-29 07:18] LABS: HEMATOCRIT 35.3 % (36.0-46.0); MCH 29.7 PG (29.0-34.0); MCHC 30.6 G/DL (30.0-36.0); MEAN PLAT.VOLUME 9.9 uM^3 (9.5-12.4); NRBC (%) 0.2 /100 WBC (0-0); PLATELET COUNT 307 K/uL (156-360); RBC DIS.WIDTH-CV 16.7 % (11.8-14.6); RBC DIS.WIDTH-SD 59.5 % (39-53); RED BLOOD COUNT 3.64 M/uL (3.80-5.20); WHITE BLOOD COUNT 17.7 K/uL (4.1-10.2)
[2017-04-29 07:40] VITALS: BP 161/83
[2017-04-29 07:43] LABS: ANISOCYTOSIS 1+; ATYPICAL LYMPHOCYTE 1.8 %; EOSINOPHIL ABS CT 0; INSTRUMENT ABS NEUTROPHIL CT 13.8 K/uL; LYMPHOCYTES 1.8 % (15.0-45.0); PLAT.SUFFICIENCY ADEQUATE; SEG.NEUTROPHILS 90.3 % (46.0-76.0)
[2017-04-29 07:53] LABS: ANION GAP 8 MEQ/L (2-14); CHLORIDE 102 MEQ/L (99-109); GFR ESTIMATE (CALCULATED) 48 mL/min/; GLUCOSE 135 mg/dL (70-99); POTASSIUM 5.4 MEQ/L (3.7-5.4); SAMPLE HEMOLYSIS CHECK 0; SAMPLE ICTERIC CHECK 0; SAMPLE LIPEMIA CHECK 0; SODIUM 143 MEQ/L (136-147); UREA NITROGEN (BUN) 45 mg/dL (9-23)
[2017-04-29 10:21] LABS: INTER. NORMALIZED RATIO 2.9; PROTHROMBIN TIME 33.4 SEC (10.2-12.9)
[2017-04-29 11:30] VITALS: BP 137/69
[2017-04-29] MEDS ORDERED: CEFTIN500 MG PO (12:58)
[2017-04-29] MEDS ORDERED: CALAN80 MG PO (12:59)
[2017-04-29] MEDS ORDERED: PREDNISONE20 MG PO (13:00)
[2017-04-29] MEDS ORDERED: ATIVAN0.5 MG PO (13:04)
[2017-04-29] MEDS ORDERED: MORPHINE S10 MG/5 ML PO (13:05)
[2017-04-29 15:01] VITALS: BP 166/79
== END 2017-04-29 15:18 | disposition hospice, home (50) | DRG 190 ==
LOC: EME 15:53 → 2EAST 20:58 → EDOF 20:58 → CANRESERV 20:59 → ENRESERV 20:59 → 2EAST 22:10
PROVIDERS: Internal Medicine
PROC: 5A09357 Assistance with Respiratory Ventilation, Less than 24 Consecutive Hours, Continuous Positive Airway Pressure (ICD-10-PCS; principal; 2017-04-23)
DX: J44.1 Chronic obstructive pulmonary disease with (acute) exacerbation (principal); J96.21 Acute and chronic respiratory failure with hypoxia; N17.9 Acute kidney failure, unspecified; I13.0 Hypertensive heart and chronic kidney disease with heart failure and stage 1 through stage 4 chronic kidney disease, or unspecified chronic kidney disease; I50.32 Chronic diastolic (congestive) heart failure; L97.829 Non-pressure chronic ulcer of other part of left lower leg with unspecified severity; L03.115 Cellulitis of right lower limb; L03.116 Cellulitis of left lower limb; L97.819 Non-pressure chronic ulcer of other part of right lower leg with unspecified severity; I87.8 Other specified disorders of veins; I83.028 Varicose veins of left lower extremity with ulcer other part of lower leg; E66.01 Morbid (severe) obesity due to excess calories; E11.22 Type 2 diabetes mellitus with diabetic chronic kidney disease; I95.9 Hypotension, unspecified; I27.2 Other secondary pulmonary hypertension; E11.622 Type 2 diabetes mellitus with other skin ulcer; I83.018 Varicose veins of right lower extremity with ulcer other part of lower leg; R05 Cough; N18.3 Chronic kidney disease, stage 3 (moderate); K58.9 Irritable bowel syndrome, unspecified; I73.9 Peripheral vascular disease, unspecified; R00.0 Tachycardia, unspecified; H16.429 Pannus (corneal), unspecified eye; I89.0 Lymphedema, not elsewhere classified; I87.2 Venous insufficiency (chronic) (peripheral); M46.94 Unspecified inflammatory spondylopathy, thoracic region; E03.9 Hypothyroidism, unspecified; G89.29 Other chronic pain; D68.59 Other primary thrombophilia; K21.9 Gastro-esophageal reflux disease without esophagitis; E78.5 Hyperlipidemia, unspecified; F32.9 Major depressive disorder, single episode, unspecified; K22.70 Barrett's esophagus without dysplasia; M86.9 Osteomyelitis, unspecified; F41.9 Anxiety disorder, unspecified; G47.33 Obstructive sleep apnea (adult) (pediatric); Z68.30 Body mass index [BMI] 30.0-30.9, adult; Z87.891 Personal history of nicotine dependence; Z79.01 Long term (current) use of anticoagulants; Z86.718 Personal history of other venous thrombosis and embolism; Z99.81 Dependence on supplemental oxygen; Z51.5 Encounter for palliative care; Z79.2 Long term (current) use of antibiotics; Z83.3 Family history of diabetes mellitus; Z79.52 Long term (current) use of systemic steroids
CPT/HCPCS: 71010; 80048; 80053; 83735; 84484; 85025; 85027; 85610; 85730; 93005; 94002; 94640; 94640 76; 94660; 94799; 99202; 99281; 99285; J0696; J2920; J2930; J7040; J7050; J7512